=== PATIENT | male | born 1960 | race Caucasian/White ===

== ENCOUNTER → 2023-05-29 | Outpatient (CLI) | payer OTHER, SELFPAY ==
[2023-05-29 10:38] LABS: Hematocrit 39.5 % (40-54); Hemoglobin 13.3 g/dL (13.0-16.5); Mean Corp Hgb Conc 33.7 g/dL (32-36); Mean Platelet Vol. 11.5 fl (6.2-12.0); Platelet Count 172 K/mm3 (150-450); RBC Distribution Width CV 12.1 % (11.6-14.6); RBC Distribution Width SD 39.5 fl (35.1-43.9); Red Blood Count 4.44 M/mm3 (4.6-6.2)
[2023-05-29 10:50] LABS: ALB/GLOB Ratio 1.1 RATIO (0.9-2.4); AST(SGOT) 16 U/L (15-37); Alanine Aminotransfer ALT/SGPT 25 U/L (16-61); Albumin, Serum 4.1 g/dL (3.2-5.0); Alkaline Phosphatase 64 U/L (45-117); Anion Gap 5 (5-15); BUN 25 mg/dL (7-18); BUN/Creat Ratio 22.1 RATIO (10-20); Calcium,Total 9.2 mg/dL (8.5-10.1); Chloride 100 mmol/L (98-107); Cholesterol 144 mg/dL (200); Creatinine, Serum 1.13 mg/dL (0.70-1.30); EST Glomerular Filtration Rate 70 mL/min (>60); Est Glom Filt Rate - Afr Amer 84 mL/min (>60); Globulin 3.6 g/dL (2.2-4.2); Glucose 141 mg/dL (74-106); High Density Lipoprotein 36 mg/dL; Iron 93 ug/dL (65-175); Magnesium 2.2 mg/dL (1.6-2.6); Potassium 4.4 mmol/L (3.5-5.1); Protein, Total 7.7 g/dL (6.4-8.2); Sodium Level 135 mmol/L (136-145); Triglycerides 363 mg/dL; Uric Acid 7.3 mg/dL (3.5-7.2); Very Low Density Lipoprotein 73 mg/dL (5-40)
== END | disposition home or self-care (01) ==
LOC: MTLAB 07:05
PROVIDERS: PCP Student in an Organized Health Care Education/Training Program; Referring Provider Student in an Organized Health Care Education/Training Program; Visit Provider Student in an Organized Health Care Education/Training Program
DX: E11.65 Type 2 diabetes mellitus with hyperglycemia (principal); E11.39 Type 2 diabetes mellitus with other diabetic ophthalmic complication; I10 Essential (primary) hypertension; R25.2 Cramp and spasm; E78.5 Hyperlipidemia, unspecified; I25.10 Atherosclerotic heart disease of native coronary artery without angina pectoris
CPT/HCPCS: 36415; 80053; 80061; 83540; 83735; 84550; 85027

== ENCOUNTER → 2023-06-26 | Outpatient (CLI) | payer OTHER, SELFPAY ==
[2023-06-26 10:39] LABS: Anion Gap 6 (5-15); BUN 29 mg/dL (7-18); BUN/Creat Ratio 25.7 RATIO (10-20); Calcium,Total 9.4 mg/dL (8.5-10.1); Chloride 101 mmol/L (98-107); Creatinine, Serum 1.13 mg/dL (0.70-1.30); EST Glomerular Filtration Rate 70 mL/min (>60); Est Glom Filt Rate - Afr Amer 84 mL/min (>60); Glucose 153 mg/dL (74-106); Sodium Level 137 mmol/L (136-145)
== END | disposition home or self-care (01) ==
LOC: LAB 07:03 → MTLAB 07:04
PROVIDERS: PCP Student in an Organized Health Care Education/Training Program; Referring Provider Student in an Organized Health Care Education/Training Program; Visit Provider Student in an Organized Health Care Education/Training Program
DX: E87.0 Hyperosmolality and hypernatremia (principal)
CPT/HCPCS: 36415; 80048

== ENCOUNTER → 2023-08-17 | Outpatient (CLI) | payer OTHER, SELFPAY ==
--- NOTE | 2023-08-17 09:15 | ART_ITS ---
Reason For Study: claudication Procedure A bilateral lower extremity continuous wave Doppler with analog waveform analysis,segmental pressures,and ankle brachial indexes without exercise. Left Segmental Pressures Left brachial= 141mmHg. Left thigh = 209mmHg. Left calf = 170mmHg. Left posterior tibial artery = 138mmHg. Left dorsalis pedis artery = 96mmHg. Left digit = 77 mmHg. The left posterior tibial artery waveforms are triphasic. The left dorsalis pedis waveforms are biphasic. Right Segmental Pressures Right brachial= 144mmHg. Right thigh = 152mmHg. Right calf = 102mmHg. Right posterior tibial artery = 81mmHg. Right dorsalis pedis artery = 61mmHg. Right digit = 41 mmHg. The right dorsalis pedis waveforms are monophasic. The right posterior tibial artery waveforms are monophasic. Indices The right ankle brachial index by the dorsalis pedis is .42. The right ankle brachial index by the posterior tibial artery is .56. The right digital-brachial index is .28. The left ankle brachial index by the posterior tibial artery is .96. The left ankle brachial index by the dorsalis pedis is .67. The left digital-brachial index is .53. VL/Lower Ext Art Exam w/o Exercis Interpretation Summary Right AKANKSHA 0.56, moderate arterial insufficiency. Doppler/PVR waveforms and segm ental pressures reveal distal SFA/popliteal, infrapopliteal disease. Left AKANKSHA 0.96, mild arterial insufficiency. Doppler/PVR waveforms and segmental pressures reveal distal SFA/popliteal, infrapopliteal disease. Ordering Physician: Elvin Robertson Referring Physician: Elvin Robertson DO Performed By: Lui Mckeon RVT
--- NOTE | 2023-08-17 09:15 | CDU_ITS ---
Reason For Study: retinal ischemia Rt. Velocities/BP Lt. Velocities/BP Prox CCA 80.6/12.6 cm/sec. Prox CCA 81.6/13.3 cm/sec. Mid CCA 61.7/13.5 cm/sec. Mid CCA 64.5/12.3 cm/sec. Dist CCA 52.2/13.5 cm/sec. Dist CCA 50.5/9.3 cm/sec. Prox ICA 35.6/10.6 cm/sec. Prox ICA 31.3/10.6 cm/sec. Mid ICA 49.4/17.5 cm/sec. Mid ICA 42.5/14.9 cm/sec. Dist ICA 59.8/21.8 cm/sec. Dist ICA 57.2/19.2 cm/sec. Rt. ICA/CCA = 1.0. Lt. ICA/CCA = .9. Prox ECA 55.1/6.9 cm/sec. Prox ECA 55.5/8.3 cm/sec. Rt. Vert. 42.5/9.7 cm/sec. Lt. Vert. 44.2/14.9 cm/sec. Right Extracranial There is intimal thickening but no significant atherosclerotic plaque noted in the right common carotid artery. There is heterogeneous, irregular atherosclerotic plaque noted in the right internal carotid artery. There is intimal thickening but no significant atherosclerotic plaque noted in the right external carotid artery. Antegrade flow is noted in the right vertebral artery. Left Extracranial There is intimal thickening but no significant atherosclerotic plaque noted in the left common carotid artery. There is heterogeneous, irregular atherosclerotic plaque noted in the left internal carotid artery. There is heterogeneous, irregular atherosclerotic plaque noted in the left external carotid artery. Antegrade flow is noted in the left vertebral artery. Procedure Carotid Duplex 12542. This is a Carotid Duplex examination using B-mode, color flow and specral Doppler. The exam was diagnostic. Exam performed in department. VL/Carotid Duplex Ultrasound Interpretation Summary Mild (<50%) stenosis right extracranial internal carotid. Mild (<50%) stenosis left extracranial internal carotid. Patent and antegrade vertebrals bilaterally. Ordering Physician: Lucho Glass Referring Physician: Elvin Robertson Performed By: Lui Mckeon RVT
== END | disposition home or self-care (01) ==
LOC: CVS 09:11
PROVIDERS: PCP Student in an Organized Health Care Education/Training Program; Referring Provider Ophthalmology; Visit Provider Ophthalmology
DX: I73.9 Peripheral vascular disease, unspecified (principal)
CPT/HCPCS: 93880; 93923

== ENCOUNTER → 2024-02-01 | Outpatient (CLI) | payer OTHER, SELFPAY ==
--- NOTE | 2024-02-01 12:50 | ECHOCS_ITS ---
Reason For Study: CAD, HTN, HLD Procedure This was a 2D Doppler, Color Flow transthoracic echocardiogram. Contrast injection was performed. Exam performed in department. Left Ventricle Normal size and thickness. The left ventricular ejection fraction is 50 %. Diastolic function is indeterminate. Posterior and apical hypokinesis. Right Ventricle Normal right ventricle. Atria The left atrium is severely enlarged. The right atrium is mildly enlarged. Mitral Valve Trivial mitral valve insufficiency. Tricuspid Valve Trivial tricuspid valve insufficiency. Unable to estimate RV systolic pressure due to insufficient tricuspid regurgitant envelope. Aortic Valve Aortic sclerosis, no stenosis. Pulmonic Valve The pulmonic valve is not well visualized. Great Vessels Normal sized aortic root. Pericardium/Pleural Trivial pericardial effusion. Medication Diluted definity 3ml given slow IV push to enhance endocardial definition. MMode/2D Measurements & Calculations LVIDd: 5.0 cm IVSd: 1.1 cm Ao root diam: 3.2 cm LVIDs: 3.8 cm LVPWd: 1.1 cm LA dimension: 5.3 cm RVDd: 3.8 cm FS: 23.8 % LAV(MOD-bp): 51.5 ml LVAd ap4: 44.9 cm2 LVAd ap2: 34.4 cm2 LAV(MOD-bp) Indexed: 24.2 ml/m2 LVLd ap4: 9.2 cm LVLd ap2: 8.1 cm LAV(MOD-sp2): 41.0 ml EDV(MOD-sp4): 180.8 ml EDV(MOD-sp2): 117.7 ml LAV(MOD-sp4): 64.1 ml EDV(sp4-el): 185.3 ml EDV(sp2-el): 123.7 ml LVAs ap4: 30.9 cm2 LVAs ap2: 22.4 cm2 LVLs ap4: 8.7 cm LVLs ap2: 7.4 cm ESV(MOD-sp4): 92.2 ml ESV(MOD-sp2): 58.7 ml ESV(sp4-el): 92.7 ml ESV(sp2-el): 57.2 ml EF(MOD-sp4): 49.0 % EF(MOD-sp2): 50.1 % EF(sp4-el): 50.0 % SV(MOD-sp4): 88.6 ml SV(MOD-sp2): 59.0 ml SV(sp4-el): 92.6 ml LA A4 area: 20.6 cm2 LA dimension(2D): 5.2 cm RA A4 area: 17.2 cm2 TAPSE: 2.6 cm Time Measurements MV dec time: 0.24 sec Doppler Measurements & Calculations MV E max yonas: 78.3 cm/sec Lat Peak E' Yonas: 8.3 cm/sec Med Peak E' Yonas: 3.9 cm/sec MV A max yonas: 88.6 cm/sec E/E' lat: 9.4 E/E' med: 20.3 MV E/A: 0.88 Ao V2 max: 163.8 cm/sec LV V1 max: 111.7 cm/sec MV dec slope: 325.2 cm/sec2 Ao max P.7 mmHg LV V1 max P.0 mmHg Ao V2 mean: 112.1 cm/sec Ao mean P.7 mmHg Ao V2 VTI: 37.4 cm PA V2 max: 101.1 cm/sec ECHO/Echo Complete W/ Contrast Interpretation Summary The left ventricular ejection fraction is 50 %.. Posterior and apical hypokines is Diastolic function is indeterminate. The left atrium is severely enlarged. Aortic sclerosis, no stenosis. Ordering Physician: Kenyon Mccallum Referring Physician: Elvin Robertson Performed By: Nory Cotton RDCS, RVT
--- OUTSIDE RECORDS SUMMARY | 2024-02-01 17:44 | XMS RPT_ITS | CCD ---
Author Name Unknown Address [address] [place] [address] Organization [facility] Care Team Providers Care Interface Designer Name Role Phone SANDRA WEBB Unavailable SANDRA Moffett Unavailable RANJANA Patiño JR. Unavailable Unavailable DAJUAN, DR FELICIA Reeder Attending Unavaila ble DAJUAN, DR FELICIA Reeder Primary Care Unavaila ble DAJUAN, DR FELICIA Reeder Admitting Unavaila ble DAJUAN, DR FELICIA Reeder Attending Unavaila ble DAJUAN, DR FELICIA Reeder Primary Care Unavaila ble DAJUAN, DR FELICIA Reeder Admitting Unavaila ble EDWARDS WATER SANDER-CRYPTOLOGIC TECHNICIAN TECHNICAL, MICHELE Primary Care Physician [phone] ROMAR DO, DR IVY Primary Care Physician [phone] ROMAR DO, DR IVY Primary Care Unavailable ROMAR DO, DR IVY Attending Unavailable ROMAR DO, DR IVY Primary Care Unavailable ROMAR DO, DR IVY Attending Unavailable ROMAR DO, DR IVY Primary Care Unavailable ROMAR DO, DR IVY Attending Unavailable ROMAR DO, DR IVY Attending Unavailable ROMAR DO, DR IVY Primary Care Unavailable Medications Current Medications Medication Drug Class(es) Dates Sig (Normalized) Sig (Original) amLODIPine 5 mg oral tablet (4 sources) Dihydropyridine Calcium Channel Eileen Start: 05-29-2023 amLODIPine 5 mg oral tablet Dose : 5 mg = 1 tab(s), Oral, qDay, # 90 tab(s), 1 Refill(s), Pharmacy: [facility], 170, cm, 05/02/23 9:24:00 EDT, Height, kg, 05/02/23 9:24:00 EDT, Dosing Weight Start Date: 05/29/23 Status: Ordered Problems Active Problems Problem Classification Problem Date Documented Date Episodic/Chronic Anxiety disorders (4 sources) Anxiety 11-21-2019 Chronic Diabetes mellitus with complications (2 sources) Type 2 diabetes mellitus with other diabetic ophthalmic complication; Translations: [Type 2 diabetes mellitus with other diabetic ophthalmic complication] Onset: 01-17-2023 Chronic Diabetes mellitus without complication (11 sources) Diabetes mellitus; Translations: [Type 2 diabetes mellitus] 01-17-2023 Chronic Disorders of lipid metabolism (5 sources) Hyperlipidemia 11-21-2019 Chronic Disorders of teeth and jaw (4 sources) Dental caries 11-21-2019 Episodic Essential hypertension (8 sources) Essential hypertension; Translations: [Hypertensive disorder] 08-09-2020 Chronic Past or Other Problems Problem Classification Problem Date Documented Da te Episodic/Chronic Unclassified (1 source) I10,I50.22,E11.6 5,Z68.28 Onset: 05-24-2017 Results Test Name Value Interpretation Reference Range Facil ity Encounters Encounter Date Encounter Type Care Provider Facility Start: 11-21-2023 End: 11-26-[address] CATA SANTOS DO Facility:B Start: 11-21-2023 End: 11-25-[address] CATA SANTOS DO [facility] Start: 05-02-2023 End: 05-07-[address] CATA SANTOS DO Facility:B Start: 05-02-2023 End: 05-06-[address] CATA SANTOS DO [facility] Start: 01-17-2023 End: 01-22-[address] CATA SANTOS DO Facility:B Start: 01-17-2023 End: 01-21-[address] CATA SANTOS DO [facility] Start: 02-25-2021 End: 02-25-[address] FELICIA GRAFF [facility] Start: 01-28-2021 End: 01-28[facility] [facility] Start: 05-24-2017 End: 05-25-2017 Ambulatory SANDRA Stephen WEBB Facility:[facility] Procedures Date Procedure Procedure Detail Performing Clinician Start: 03-27-[address] CATA SANTOS DO Immunizations Immunization Date Immunization Notes Care Provider Ron rosenbaum 01-17-2023 tetanus toxoid, redu kyle diphtheria toxoid, and acellular pertussis vaccine, adsorbed; Translations: [Boostrix (Tdap)] DR CATA SANTOS DO [facility] Payers Date Payer Category Payer Unknown [id number] 1960 Unknown [id number] [id number] 1960 Unknown [id number] [id number] [id number] 1960 Unknown [id number] [id number] [id number] 1960 Unknown [id number] [id number] [id number] Social History Date Type Detail Facility Start: 01-21-2023 Tobacco smoking status Ex-smoker (fi nding) [facility] Clinical Note 11-23-2023 Note Date & Type Note Facility 11-23-2023 Note . MICRO - Microbiology PROCEDURE: Throat Culture [*1] SOURCE: Throat BODY SITE: COLLECTED DATE/TIME: 11/21/2023 13:53 EST RECEIVED DATE/TIME: 11/21/2023 19:54 EST START DATE/TIME: 11/21/2023 19:54 EST FREE TEXT SOURCE: FINAL REPORTS Final Report [] Verified Date/Time/Personnel: 11/23/2023 07:16 EST Normal throat mattie present Sensitivity Testing: Not Indicated PRELIMINARY REPORTS Preliminary Report [] Verified Date/Time/Personnel: 11/22/2023 12:46 EST Negative for upper respiratory pathogens at 24 hours. Performing Locations *1: This test was performed at: [address], [address] , [facility] ([place]) Clinical Note 05-04-2023 Note Date & Type Note Facility 05-04-2023 Note . MICRO - Microbiology PROCEDURE: Throat Culture [*1] SOURCE: Throat BODY SITE: COLLECTED DATE/TIME: 05/02/2023 10:30 EDT RECEIVED DATE/TIME: 05/02/2023 19:28 EDT START DATE/TIME: 05/02/2023 19:28 EDT FREE TEXT SOURCE: FINAL REPORTS Final Report [] Verified Date/Time/Personnel: 05/04/2023 07:34 EDT Normal throat mattie present Sensitivity Testing: Not Indicated PRELIMINARY REPORTS Preliminary Report [] Verified Date/Time/Personnel: 05/03/2023 09:59 EDT Negative for upper respiratory pathogens at 24 hours. Performing Locations *1: This test was performed at: [address], [facility]- , [facility] ([place]) SARS-CoV-2 (COVID-19) RNA GABBIE+probe Ql (Nph) 05-02-2023 Note Date & Type Note Facility 05-02-2023 SARS-CoV-2 (COVID -19) RNA GABBIE+probe Ql (Nph) Negative *NA* (05/02/23 10:30 AM) AO Auto Urine SS Evaluation + Plan note 09-25-2022 Laboratory Note Date & Type Note Facility 09-25-2022 Evaluation + Plan note Future Scheduled TestsBasic Metabolic Panel 09/25/22Iron Level 01/17/23Magnesium Level 01/17/23Complete Blood Count 01/17/23Lipid Profile 01/17/23Lipid Profile 09/25/22Complete Metabolic Panel 01/17/23 [facility] Evaluation + Plan note Laboratory Note Date & Type Note Facility Evaluation + Plan note Future Appointments Appointment Date:08/01/2023 09:30:00 AM Scheduled Provider:CATA SANTOS DO Location:[facility] Appointment Type: OV Future Scheduled TestsIron Level 05/02/23Magnesium Level 05/02/23Uric Acid 05/02/23Complete Blood Count 05/02/23Lipid Profile 05/02/23Complete Metabolic Panel 05/02/23 [facility] Evaluation + Plan note Laboratory Note Date & Type Note Facility Evaluation + Plan note Future Appointments Appointment Date:01/01/2024 09:30:00 AM Scheduled Provider:CATA SANTOS DO Location:[facility] Appointment Type: OV Future Scheduled TestsMagnesium Level 11/21/23Lipid Profile 11/21/23Complete Metabolic Panel 11/21/23 [facility] Hospital course Narrative Note Date & Type Note Facility Hospital course Narrative No data available for this section [facility] Hospital Discharge instructions Note Date & Type Note Facility Hospital Discharge instructions No data available for this section [facility] Progress note Note Date & Type Note Facility Progress note No data available for this section [facility] Summary Purpose Family History No Family History Records FoundNo Family History Records Found No data available for this section No Family History Records Found Advance Directives No Advanced Directives Records FoundNo Advanced Directives Records FoundNo Advanced Directives Records Found Additional Source Comments (unrecognized sect ion and content) No Status Records FoundNo Status Records FoundNo Status Records Found INFORMATION SOURCE (unrecogn ized section and content) DATE CREATED AUTHOR AUTHOR'S ORGANIZ ATION 03/11/2021 [facility] DATE CREATED AUTHOR AUTHOR'S ORGANIZ ATION 11/26/2023 [facility] ([place]) Care Team (unrecognized sect ion and content) Care Team Personnel Name: MICHELE EDWARDS Position: P4 Advanced Supervisor Correspondence Section Member Role: Primary Care Physician Address: Address: [address] [place] [address] [facility] [place] [place] [address] Care Team Related Persons Name: ROCIO CURRIE Address: Home [address] [place] [phone] Patient Care team informatio n (unrecognized section and content) Care Team Personnel Name: CATA SANTOS DO Position: P4 Physician - Primary Care Member Role: Primary Care Physician Address: Address: [address] [place] [address] Care Team Related Persons Name: ROCIO CURRIE Address: [address], [place] [id number] Care Team Personnel Name: CATA SANTOS DO Position: P4 Physician - Primary Care Member Role: Primary Care Physician Address: Address: [address] [place] [address] Care Team Related Persons Name: ROCIO CURRIE Address: Home [address], [place] [id number] Care Team Personnel Name: CATA SANTOS DO Position: P4 Physician - Primary Care Member Role: Primary Care Physician Address: Address: [address] [place] [address] Care Team Related Persons Name: ROCIO CURRIE Address: Home [address] [place] [phone] FOR RECORDS PERTAINING TO PATIENTS WHO ARE OR HAVE BEEN ENROLLED IN A CHEMICAL DEPENDENCY/SUBSTANCEABUSE PROGRAM, SOME INFORMATION MAY BE OMITTED. This clinical summary was aggregated from multiple sources. Caution should be exercised in using it in the provision of clinical care. This summary normalizes information from multiple sources, and as a consequence, information in this document may materially change the coding, format and clinical context of patient data. In addition, data may be omitted in some cases. CLINICAL DECISIONS SHOULD BE BASED ON THE PRIMARY CLINICAL RECORDS. [employer] provides no warranty or guarantee of the accuracy or completeness of information in this document.
== END | disposition home or self-care (01) ==
PROVIDERS: PCP Student in an Organized Health Care Education/Training Program; Referring Provider Internal Medicine Cardiovascular Disease; Visit Provider Internal Medicine Cardiovascular Disease
DX: I25.10 Atherosclerotic heart disease of native coronary artery without angina pectoris (principal); I10 Essential (primary) hypertension; E78.5 Hyperlipidemia, unspecified
CPT/HCPCS: 93306; Q9957; A4216; C8929

== ENCOUNTER → 2025-05-28 | Outpatient (CLI) | payer MEDICARE, SELFPAY ==
--- NOTE | 2025-05-28 08:45 | ART_ITS ---
Reason For Study Reason For Study: Atherosclerodsis Procedure A bilateral lower extremity continuous wave Doppler with analog waveform analysis and ankle brachial indexes. Unable to obtain doppler waveforms due to pencil probe being broken, used ultrasound machine to obtain blood pressures. Left Segmental Pressures Left brachial= 150mmHg. Left posterior tibial artery = 132mmHg. Left dorsalis pedis artery = 88mmHg. Left digit = 80 mmHg. Right Segmental Pressures Right brachial= 148mmHg. Right posterior tibial artery = 73mmHg. Right dorsalis pedis artery = 49mmHg. Right digit = 49 mmHg. Indices The right ankle brachial index by the dorsalis pedis is 0.33. The right ankle brachial index by the posterior tibial artery is 0.49. The right digital-brachial index is 0.33. The left ankle brachial index by the dorsalis pedis is 0.59. The left ankle brachial index by the posterior tibial artery is 0.88. The left digital-brachial index is 0.53. VL/Ankle Brachial Index Interpretation Summary The right resting ankle-brachial index appears moderately abnormal. The left re sting ankle-brachial index appears mildly abnormal. Ordering Physician: Chava Moreno Referring Physician: Elvin Robertson Performed By: Suzie Lo RVT
--- NOTE | 2025-05-28 08:45 | AAVD_ITS ---
Reason For Study Reason For Study: Atherosclerosis Aorta Measurements Aorta Doppler Measurements Proximal aorta measures2.09 x 2.09cm. in cross-sectional Peak systolic flow velocities within the proximal aorta axis. measure 83.2 cm/sec. Proximal aorta measures2.11cm. in longitudinal axis. Peak systolic flow velocities within the mid aorta measure Mid aorta measures1.87 x 1.82cm. in cross-sectional axis. 54.2 cm/sec. Mid aorta measures1.84cm. in longitudinal axis. Peak systolic flow velocities within the distal aorta Distal aorta measures1.68 x 1.66cm. in cross-sectional axis.measure 63.2 cm/sec. Distal aorta measures1.70cm. in longitudinal axis. Left Iliac Artery Left iliac artery measures 0.93 x 0.89 cm. in the cross-sectional axis. Left iliac artery measures 0.93 cm. in the longitudinal axis. Peak systolic velocity in the left iliac artery measures 63.2 cm/sec. Right Iliac Artery Right iliac artery measures 0.97 x 0.96 cm. in the cross-sectional axis. Right iliac artery measures 0.96 cm. in the longitudinal axis. Peak systolic velocity in the right iliac artery measures 232.5 cm/sec. Procedure Aorta IVC Iliac vasculature or bypass grafts [id number]. Exam performed in department. VL/Abd Aortic/IVC Duplex scan Interpretation Summary No aneurysm seen. Right common iliac stenosis. Ordering Physician: Chava Moreno Referring Physician: Elvin Robertson Performed By: Suzie Lo RVT
--- NOTE | 2025-05-28 08:45 | ADUL_ITS ---
Reason For Study Reason For Study: Atherosclerosis Right Velocities Ext. Iliac Artery, dist = 56.3 cm./sec. Acoustic shawdowing noted throughout the INSPECTOR AND TESTER and SFA prox. Common Femoral Artery, mid = 39.6 cm./sec. Supf Femoral Artery, prox = 14.9 cm./sec. Supf Femoral Artery, mid = 59.4 cm./sec. Supf Femoral Artery, dist. = 31.1 cm./sec. Profunda Femoral Artery = 31.1 cm./sec. Popliteal Artery, mid = 22.7 cm./sec. Post. Tibial Artery, prox = 45.3 cm./sec. Post. Tibial Artery, mid = 28.7 cm./sec. Post. Tibial Artery, dist = 34.8 cm./sec. Peroneal Artery, prox = 0 cm./sec. Peroneal Artery, mid = 0 cm./sec. Peroneal Artery,dist = 9.8 cm./sec. Ant. Tibial Artery, prox = 13.3 cm./sec. Ant. Tibial Artery, mid = 13 cm./sec. Ant. Tibial Artery, dist = 16.9 cm./sec. Procedure Exam performed in department. /US Art Duplex Unilat Lower Ext Interpretation Summary Right leg no stenosis seen but decrease flow noted and suspect proximal disease . Ordering Physician: Chava Moreno Referring Physician: Elvin Robertson Performed By: Suzie Lo RVT
--- OUTSIDE RECORDS SUMMARY | 2025-05-28 09:21 | XMS RPT_ITS | CCD ---
Author Organization [facility] Inform ion Partnership [facility] Care Team Providers Care Director [employer] Name Role Phone SANDRA WEBB Unavailable Unavailable SANDRA WEBB Unavailable Unavailable RANJANA CHRISTIAN JR. Unavailable Unavailable DAJUAN, DR FELICIA Reeder Attending Unavaila ble DAJUAN, DR FELICIA Reeder Primary Care Unavaila ble DAJUAN, DR FELICIA Reeder Admitting Unavaila ble DAJUAN, DR FELICIA Reeder Attending Unavaila ble DAJUAN, DR FELICIA Reeder Primary Care Unavaila ble DAJUAN, DR FELICIA Reeder Admitting Unavaila ble GRACE BARAJAS, MICHELE Primary Care Physician ROMAR DO, DR IVY Primary Care Physician [phone] Ailyn, Dr. Ivy Primary Care Provider [phone] Dr. Troy Ortiz Attending Provider ROMAR DO, DR IVY Primary Care Unavailable ROMAR DO, DR IVY Attending Unavailable ROMAR DO, DR IVY Primary Care Unavailable ROMAR DO, DR IVY Attending Unavailable ROMAR DO, DR IVY Primary Care Unavailable ROMAR DO, DR IVY Attending Unavailable ROMAR DO, DR IVY Attending Unavailable ROMAR DO, DR IVY Primary Care Unavailable Ailyn, Dr. Ivy Primary Care Provider [phone] Riaz Cohen Attending Provider [phone] AILYN DO, DR IVY Primary Care Unavailable ROMAR DO, DR IVY Attending Unavailable ROMAR DO, DR IVY Attending Unavailable ROMAR DO, DR IVY Primary Care Unavailable ROMAR DO, DR IVY Attending Unavailable ROMAR DO, DR IVY Primary Care Unavailable Jamaal Deleon Attending Unavailable Cata Robertson Referring Unavailable Cata Robertson Primary Care Unavailable Cata Robertson Primary Care Unavailable Moreno, Chava A Referring Unavailable Chava Moreno Attending Unavailable Medications Current Medications Medication Drug Class(es) Dates Sig (Normalized) Sig (Original) amLODIPine 5 mg oral tablet (7 sources) Dihydropyridine Calcium Channel Eileen Start: 11-20-2024 amLODIPine 5 mg oral tablet Dose : 5 mg = 1 tab(s), Oral, qDay, # 90 tab(s), 1 Refill(s), Pharmacy: [facility], 170, cm, 10/15/24 13:45:00 EST, Height, kg, 10/15/24 13:45:00 EST, Dosing Weight Start Date: 11/20/24 Status: Ordered Quantity: 90.0 Unit: tab(s) Repeat number: 2 Start: 08-15-2024 amLODIPine 5 m g oral tablet Dose : 5 mg = 1 tab(s), Oral, qDay, # 90 tab(s), 2 Refill(s), Pharmacy: [facility], 170.2, cm, 06/04/24 13:43:00 EDT, Height, kg, 06/04/24 13:43:00 EDT, Dosing Weight Start Date: 08/15/24 Status: Ordered Start: 05-29-2023 amLODIPine 5 m g oral tablet Dose : 5 mg = 1 tab(s), Oral, qDay, # 90 tab(s), 1 Refill(s), Pharmacy: [facility], 170, cm, 05/02/23 9:24:00 EDT, Height, kg, 05/02/23 9:24:00 EDT, Dosing Weight Start Date: 05/29/23 Status: Ordered Start: 08-18-2022 amLODIPine 5 m g oral tablet Dose : 5 mg = 1 tab(s), Oral, qDay, # 90 tab(s), 3 Refill(s), Pharmacy: [facility], 170, cm, 07/20/22 8:55:00 EDT, Height, kg, 07/20/22 8:55:00 EDT, Dosing Weight Start Date: 08/18/22 Status: Ordered aspirin 81 mg delayed release oral tablet (7 sources) Platelet Aggregation Inhibitor, Nonsteroidal Anti-inflammatory Drug Start: 07-01-2019 aspirin 81 mg ora l delayed release tablet Dose : 81 mg = 1 tab(s), Oral, Daily, 0 Refill(s) Start Date: 07/01/19 Status: Ordered Repeat number: 1 atorvastatin 80 mg oral tablet (7 sources) HMG-CoA Reductase Inhibitor Start: 08-19-2024 End: 03-07-2025 atorvastatin 80 mg oral tablet Dose : 80 mg = 1 tab(s), Oral, qHS, # 90 tab(s), 3 Refill(s), Pharmacy: [facility], 170.2, cm, 08/19/24 13:55:00 EDT, Height, kg, 08/19/24 13:55:00 EDT, Dosing Weight Start Date: 08/19/24 Stop Date: 03/07/25 Status: Ordered Quantity: 90.0 Unit: tab(s) Repeat number: 4 Start: 08-01-2023 atorvastatin 8 0 mg oral tablet Dose : 80 mg = 1 tab(s), Oral, qHS, # 90 tab(s), 1 Refill(s), Pharmacy: [facility], 170, cm, 08/01/23 9:25:00 EDT, Height, kg, 08/01/23 9:25:00 EDT, Dosing Weight Start Date: 08/01/23 Status: Ordered Start: 01-17-2023 Lipitor 40 mg oral tablet Dose : 40 mg = 1 tab(s), Oral, qDay, # 90 tab(s), 1 Refill(s), Pharmacy: [facility], 170, cm, 01/17/23 8:54:00 EST, Height, kg, 01/17/23 8:54:00 EST, Dosing Weight Start Date: 01/17/23 Status: Ordered benzonatate 100 mg oral capsule (5 sources) Non-narcotic Antitussive Start: 01-13-2025 End: 01-27-2025 Tessalon Perles 100 mg oral capsule Dose : 100 mg = 1 cap(s), Oral, TID, PRN as needed for cough, do not crush or chew, X 14 day(s), # 42 cap(s), 0 Refill(s), 01/27/25 9:28:00 AM EDT, Pharmacy: [facility], 169.5, cm, 01/13/25 8:48:00 EST, Height, kg, 01/13/25 8:48:00 EST, Dosing Weight Start Date: 01/13/25 Stop Date: 01/27/25 Status: Ordered Quantity: 42.0 Unit: cap(s) Repeat number: 1 Start: 11-21-2023 End: 12-05-2023 Tessalon Perles 100 mg oral capsule Dose : 100 mg = 1 cap(s), Oral, TID, PRN as needed for cough, do not crush or chew, X 14 day(s), # 42 cap(s), 0 Refill(s), 12/05/23 11:01:00 AM EST, Pharmacy: [facility], 170.3, cm, 11/21/23 9:57:00 EST, Height, kg, 11/21/23 9:57:00 EST, Dosing Weight Start Date: 11/21/23 Stop Date: 12/05/23 Status: Ordered Start: 05-02-2023 End: 05-09-2023 take 1-2 capsules by mouth three times daily as needed for cough Tessalon Perles 100 mg oral capsule 1-2 caps, Oral, TID, PRN as needed for cough, do not crush or chew, X 7 day(s), # 42 cap(s), 0 Refill(s), 05/09/23 10:19:00 EDT, Pharmacy: [facility], 170, cm, 05/02/23 9:24:00 EDT, Height Start Date: 05/02/23 Stop Date: 05/09/23 Status: Ordered carvedilol 25 mg oral tablet (7 sources) alpha-Adrenergic Eileen, beta-Adrenergic Eileen Start: 08-19-2024 carvedilol 25 mg oral tablet Dose : 25 mg = 1 tab(s), Oral, BID, TAKE 1 TABLET BY MOUTH TWICE DAILY, # 180 tab(s), 3 Refill(s), Pharmacy: [facility], 170.2, cm, 08/19/24 13:55:00 EDT, Height, kg, 08/19/24 13:55:00 EDT, Dosing Weight Start Date: 08/19/24 Status: Ordered Quantity: 180.0 Unit: tab(s) Repeat number: 4 Start: 11-21-2022 carvedilol 25 mg oral tablet Dose : 25 mg = 1 tab(s), Oral, BID, TAKE 1 TABLET BY MOUTH TWICE DAILY, # 180 tab(s), 3 Refill(s), Pharmacy: [facility], 170, cm, 09/25/22 9:05:00 EST, Height, kg, 09/25/22 9:05:00 EST, Dosing Weight Start Date: 11/21/22 Status: Ordered chlorthalidone 25 mg oral tablet (7 sources) Thiazide-like Diuretic Start: 12-01-2024 chlorthalidone 25 mg oral tablet Dose : 25 mg = 1 tab(s), Oral, qDay, TAKE 1 TABLET BY MOUTH ONCE DAILY, # 90 tab(s), 2 Refill(s), Pharmacy: [facility], 170, cm, 10/15/24 13:45:00 EST, Height, kg, 10/15/24 13:45:00 EST, Dosing Weight Start Date: 12/01/24 Status: Ordered Quantity: 90.0 Unit: tab(s) Repeat number: 3 Start: 09-12-2024 chlorthalidone 25 mg oral tablet Dose : 25 mg = 1 tab(s), Oral, qDay, TAKE 1 TABLET BY MOUTH ONCE DAILY, # 90 tab(s), 0 Refill(s), Pharmacy: [facility], 170.2, cm, 08/19/24 13:55:00 EDT, Height, kg, 08/19/24 13:55:00 EDT, Dosing Weight Start Date: 09/12/24 Status: Ordered Start: 12-15-2022 chlorthalidone 25 mg oral tablet Dose : 25 mg = 1 tab(s), Oral, qDay, TAKE 1 TABLET BY MOUTH ONCE DAILY, # 90 tab(s), 3 Refill(s), Pharmacy: [facility], 170, cm, 09/25/22 9:05:00 EST, Height, kg, 09/25/22 9:05:00 EST, Dosing Weight Start Date: 12/15/22 Status: Ordered 12 hr dextromethorphan hydrobromide 60 mg / guaiFENesin 1200 mg extended release oral tablet (2 sources) Uncompetitive H-ldwhii-N-aspartate Receptor Antagonist, Sigma-1 Agonist Start: 01-13-2025 End: 01-27-2025 dextromethorphan-guaifenesin 60 mg-1200 mg oral tablet, extended release Dose = 1 tab(s), Oral, BID, PRN Cough and congestion, do not crush or chew. with a full glass of water. Do not take any other over the counter mucinex, dextromethorphan, guaifenesin containing medications while on med., X 14 day(s), # 28 tab(s), 0 Refill(s), Pharmacy: [facility], 169.5, cm, 01/13/25 8:48:00 EST, Height, kg, 01/13/25 8:48:00 EST, Dosing Weight Start Date: 01/13/25 Stop Date: 01/27/25 Status: Ordered Quantity: 28.0 Unit: tab(s) Repeat number: 1 doxazosin 2 mg oral tablet (7 sources) alpha-Adrenergic Eileen Start: 09-08-2024 doxazosin 2 mg oral tablet Dose : 2 mg = 1 tab(s), Oral, qHS, # 90 tab(s), 3 Refill(s), Pharmacy: [facility], 170.2, cm, 08/19/24 13:55:00 EDT, Height, kg, 08/19/24 13:55:00 EDT, Dosing Weight Start Date: 09/08/24 Status: Ordered Quantity: 90.0 Unit: tab(s) Repeat number: 4 Start: 12-15-2022 doxazosin 2 mg oral tablet Dose : 2 mg = 1 tab(s), Oral, qHS, # 90 tab(s), 3 Refill(s), Pharmacy: [facility], 170, cm, 09/25/22 9:05:00 EST, Height, kg, 09/25/22 9:05:00 EST, Dosing Weight Start Date: 12/15/22 Status: Ordered empagliflozin 10 mg oral tablet (7 sources) Sodium-Glucose Cotransporter 2 Inhibitor Start: 10-14-2024 End: 05-02-2025 empagliflozin 10 mg oral tablet Dose : 10 mg = 1 tab(s), Oral, qAM, # 100 tab(s), 1 Refill(s), Pharmacy: [facility], 170.2, cm, 10/14/24 9:00:00 EST, Height, kg, 10/14/24 8:56:00 EST, Dosing Weight Start Date: 10/14/24 Stop Date: 05/02/25 Status: Ordered Quantity: 100.0 Unit: tab(s) Repeat number: 2 Start: 08-01-2023 empagliflozin 25 mg oral tablet Dose : 25 mg = 1 tab(s), Oral, qAM, # 90 tab(s), 1 Refill(s), Pharmacy: [facility], 170, cm, 08/01/23 9:25:00 EDT, Height, kg, 08/01/23 9:25:00 EDT, Dosing Weight Start Date: 08/01/23 Status: Ordered Start: 05-02-2023 End: 07-01-2023 empagliflozin 25 mg oral tab let Dose : 25 mg = 1 tab(s), Oral, qAM, # 60 tab(s), 0 Refill(s), Pharmacy: [facility], 170, cm, 05/02/23 9:24:00 EDT, Height Start Date: 05/02/23 Stop Date: 07/01/23 Status: Ordered Start: 01-17-2023 End: 04-17-2023 Jardiance 10 mg oral tablet Dose : 10 mg = 1 tab(s), Oral, qAM, # 90 tab(s), 0 Refill(s), Pharmacy: [facility], 170, cm, 01/17/23 8:54:00 EST, Height, kg, 01/17/23 8:54:00 EST, Dosing Weight Start Date: 01/17/23 Stop Date: 04/17/23 Status: Ordered eplerenone 25 mg oral tablet (5 sources) Aldosterone Antagonist Start: 09-02-2024 End: 12-01-2024 eplerenone 25 mg oral tablet Dose : 12.5 mg = 0.5 tab(s), Oral, qDay, X 90 day(s), # 45 tab(s), 0 Refill(s), 12/01/24 11:01:00 AM EST, Pharmacy: [facility], 170.2, cm, 08/19/24 13:55:00 EDT, Height, kg, 08/19/24 13:55:00 EDT, Dosing Weight Start Date: 09/02/24 Stop Date: 12/01/24 Status: Ordered Start: 11-21-2022 take 0.5 tablet by m outh once daily eplerenone 25 mg oral tablet See Instructions, TAKE 1/2 TABLET BY MOUTH DAILY, # 45 tab(s), 3 Refill(s), Pharmacy: [facility], 170, cm, 09/25/22 9:05:00 EST, Height, kg, 09/25/22 9:05:00 EST, Dosing Weight Start Date: 11/21/22 Status: Ordered 12 hr guaiFENesin 1200 mg extended release oral tablet (1 source) Start: 11-21-2023 End: 12-05-2023 take 1 tablet by mouth once daily guaiFENesin 1200 mg oral tablet, extended release Dose : 1,200 mg = 1 tab(s), Oral, q12h, PRN Cough and congestion, not to exceed 2.4 grams/day, with plenty of water. Do not take any other guaifenesin or mucinex containing over the counter medications while on this medication., X 14 day(s), # 28 tab(s), 0 Refill(s), 12/05/23 11:01:00 AM EST, Pharmacy: [facility], 170.3, cm, 11/21/23 9:57:00 EST, Height, kg, 11/21/23 9:57:00 EST, Dosing Weight Start Date: 11/21/23 Stop Date: 12/05/23 Status: Ordered lisinopril 20 mg oral tablet (7 sources) Angiotensin Converting Enzyme Inhibitor Start: 12-16-2024 lisinopril 20 mg oral tablet Dose : 20 mg = 1 tab(s), Oral, qDay, # 90 tab(s), 3 Refill(s), Pharmacy: [facility], 170, cm, 10/15/24 13:45:00 EST, Height, kg, 10/15/24 13:45:00 EST, Dosing Weight Start Date: 12/16/24 Status: Ordered Quantity: 90.0 Unit: tab(s) Repeat number: 4 Start: 09-02-2024 lisinopril 20 mg oral tablet Dose : 20 mg = 1 tab(s), Oral, qDay, # 90 tab(s), 0 Refill(s), Pharmacy: [facility], 170.2, cm, 08/19/24 13:55:00 EDT, Height, kg, 08/19/24 13:55:00 EDT, Dosing Weight Start Date: 09/02/24 Status: Ordered Start: 09-12-2023 lisinopril 20 mg oral tablet Dose : 20 mg = 1 tab(s), Oral, qDay, # 90 tab(s), 0 Refill(s), Pharmacy: [facility], 170, cm, 08/01/23 9:25:00 EDT, Height, kg, 08/01/23 9:25:00 EDT, Dosing Weight Start Date: 09/12/23 Status: Ordered Start: 09-25-2022 lisinopril 20 mg oral tablet Dose : 20 mg = 1 tab(s), Oral, qDay, # 90 tab(s), 3 Refill(s), Pharmacy: [facility], 170, cm, 09/25/22 9:05:00 EST, Height Start Date: 09/25/22 Status: Ordered metFORMIN hydrochloride 1000 mg oral tablet (7 sources) Biguanide Start: 10-14-2024 End: 05-02-2025 metFORMIN 1000 mg oral tablet (IR) Dose : 1,000 mg = 1 tab(s), Oral, BID, with meals, # 200 tab(s), 1 Refill(s), Pharmacy: [facility], 170.2, cm, 10/14/24 9:00:00 EST, Height, kg, 10/14/24 8:56:00 EST, Dosing Weight Start Date: 10/14/24 Stop Date: 05/02/25 Status: Ordered Quantity: 200.0 Unit: tab(s) Repeat number: 2 Start: 08-01-2023 metFORMIN 1000 mg oral tablet (IR) Dose : 1,000 mg = 1 tab(s), Oral, BID, with meals, # 180 tab(s), 1 Refill(s), Pharmacy: [facility], 170, cm, 08/01/23 9:25:00 EDT, Height, kg, 08/01/23 9:25:00 EDT, Dosing Weight Start Date: 08/01/23 Status: Ordered Start: 03-07-2023 metFORMIN 1000 mg oral tablet (IR) Dose : 1,000 mg = 1 tab(s), Oral, BID, with meals, # 180 tab(s), 1 Refill(s), Pharmacy: [facility], 170, cm, 03/07/23 10:01:00 EDT, Height, kg, 03/07/23 10:01:00 EDT, Dosing Weight Start Date: 03/07/23 Status: Ordered Start: 09-18-2022 metFORMIN 1000 mg oral tablet (IR) Dose : 1,000 mg = 1 tab(s), Oral, BID, # 180 tab(s), 1 Refill(s), Pharmacy: [facility], 170, cm, 07/20/22 8:55:00 EDT, Height, kg, 07/20/22 8:55:00 EDT, Dosing Weight Start Date: 09/18/22 Status: Ordered Multivitamin preparation (7 sources) Start: 03-24-2017 take 1 tablet by mouth once daily Multivitamin Dose = 1 tab(s), Oral, Daily, 0 Refill(s) Start Date: 03/24/17 Status: Ordered Repeat number: 1 Start: 03-24-2017 take 1 tablet by jenelle th once daily Multivitamin Dose = 1 tab(s), Oral, Daily, 0 Refill(s) Start Date: 03/24/17 Status: Ordered oseltamivir 75 mg oral capsule (1 source) Neuraminidase Inhibitor Start: 11-22-2023 End: 11-27-2023 oseltamivir 75 mg oral capsule Dose : 75 mg = 1 cap(s), Oral, BID, X 5 day(s), # 10 cap(s), 0 Refill(s), 11/27/23 5:19:00 PM EST, TREATMENT , Pharmacy: [facility], 170.3, cm, 11/21/23 9:57:00 EST, Height, kg, 11/21/23 9:57:00 EST, Dosing Weight Start Date: 11/22/23 Stop Date: 11/27/23 Status: Ordered Completed/Discontinued Medications Medication Drug Class(es) Dates Sig (Normalized) Sig (Original) hydrOXYzine hydrochloride 50 mg oral tablet (3 sources) Antihistamine Start: 10-14-2024 End: 11-13-2024 hydrOXYzine hydrochloride 50 mg oral tablet Dose : 50 mg = 1 tab(s), Oral, QID, PRN as needed for anxiety, Do not drive, operate heavy machinery, or drink alcohol while on this medication. Okay to try half a tab when first starting medication. Do not take any other anti-histamines while on this medication., # 30 tab(s), 0 Refill(s), Pharmacy: [facility], 170.2, cm, 10/14/24 9:00:00 EST, Height, kg, 10/14/24 8:56:00 EST, Dosing Weight Start Date: 10/14/24 Stop Date: 11/13/24 Status: Ordered Quantity: 30.0 Unit: tab(s) Repeat number: 1 Problems Active Problems Problem Classification Problem Date Documented Date Episodic/Chronic Anxiety disorders (7 sources) Anxiety 11-21-2019 Chronic Coronary atherosclerosis and other heart disease (3 sources) Coronary arteriosclerosis 08-19-2024 Chronic Diabetes mellitus with complications (6 sources) Type 2 diabetes mellitus with other diabetic ophthalmic complication; Translations: [Type 2 diabetes mellitus with other diabetic kidney complication] Onset: 01-17-2023 Chronic Diabetes mellitus without complication (20 sources) Diabetes mellitus; Translations: [Type 2 diabetes mellitus] 01-17-2023 Chronic Disorders of lipid metabolism (11 sources) Hyperlipidemia 11-21-2019 Chronic Disorders of teeth and jaw (7 sources) Dental caries 11-21-2019 Episodic Essential hypertension (17 sources) Essential hypertension; Translations: [Hypertensive disorder] Onset: 01-13-2025 08-09-2020 Chronic Comment on above: White coat component Fluid and electrolyte disorders (11 sources) Hyperkalemia; Translations: [Hypernatremia] 11-21-2019 Episodic Gout and other crystal arthropathies (7 sources) Gout 11-21-2019 Chronic Immunizations and screening for infectious disease (2 sources) Encounter for screening for other viral diseases; Translations: [Encounter for screening for other viral diseases] Onset: 10-21-2024 Episodic Influenza (2 sources) Influenza due to Influenza A virus 11-22-2023 Episodic Other and ill-defined heart disease (3 sources) Left atrial enlargement 06-04-2024 Chronic Other circulatory disease (7 sources) Disorder of coronary artery 08-09-2020 Chronic Comment on above: 70% stenosis in a sm all mid LAD and 100% RCA. Other connective tissue disease (7 sources) Cramp 01-17-2023 Episodic Other connective tissue disease (6 sources) H/O: gout 03-11-2023 Episodic Other connective tissue disease (6 sources) Pain in toe 03-07-2023 Episodic Other connective tissue disease (4 sources) Pain in calf 08-01-2023 Episodic Other lower respiratory disease (7 sources) Dyspnea 08-09-2020 Episodic Other lower respiratory disease (4 sources) H/O: pneumonia 11-21-2023 Episodic Other nutritional; endocrine; and metabolic disorders (4 sources) Body mass index 30+ - obesity 08-01-2023 Chronic Other nutritional; endocrine; and metabolic disorders (2 sources) Hyperuricemia without signs of inflammatory arthritis and tophaceous disease; Translations: [Hyperuricemia without signs of inflammatory arthritis and tophaceous disease] Onset: 10-21-2024 Episodic Other screening for suspected conditions (not mental disorders or infectious disease) (5 sources) Blood urate raised; Translations: [Encounter for screening for lipoid disorders] Onset: 10-21-2024 04-21-2024 Episodic Other skin disorders (6 sources) Foot callus 03-11-2023 Episodic Other upper respiratory infections (6 sources) Acute upper respiratory infection, unspecified; Translations: [Acute pharyngitis, unspecified] Onset: 05-02-2023 Episodic Peripheral and visceral atherosclerosis (8 sources) Intermittent claudication; Translations: [Peripheral vascular disease, unspecified] Onset: 10-21-2024 03-07-2023 Chronic Pleurisy; pneumothorax; pulmonary collapse (7 sources) Pleural effusion 08-09-2020 Episodic Pneumonia (except that caused by tuberculosis or sexually transmitted disease) (3 sources) Community acquired pneumonia 08-09-2020 Episodic Residual codes; unclassified (7 sources) Family history of cancer of colon 11-21-2019 Episodic Residual codes; unclassified (7 sources) Family history of ischemic heart disease 11-21-2019 Episodic Unclassified (1 source) Unknown / UNK(Unknown) Onset: 05-24-2017 Unclassified (4 sources) Peripheral arterial disease 08-22-2023 Unclassified (1 source) Cough, unspecified; Translations: [Cough, unspecified] Onset: 07-29-2024 Past or Other Problems Problem Classification Problem Date Documented Da te Episodic/Chronic Unclassified (1 source) I10,I50.22,E11.6 5,Z68.28 Onset: 05-24-2017 Results Test Name Value Interpretation Reference Range Facility LABORATORYOrdered By: Perla López on 01-13-2025 Albumin DL <= 20 mg/L (U) [Mass/Vol] 16.9 mg/L Invalid Interpretation Code AO ADM SS Albumin/Creatinine DL <= 20 mg/L (U) [Mass ratio] Unable to Calculate Invalid Interpretation Code 0 - 30 AO Chemistry S Comment on above: Result Comment: Unab le to calculate this test result accurately. Results used to calculate this test are outside the reportable range. Creatinine (U) [Mass/Vol] mg/dL Invalid Interpretation Code AO ADM SS MALBRon 01-13-2025 U Creatinine <13.0 Normal [facility] Comment on above: Performed By: #### M ALBR #### [address] [address] U Microalb 16.9 mg/L Normal [facility] Comment on above: Performed By: #### M ALBR #### [address] [address] U Ratio Alb/Cre Unable to Calculate Normal 0-30 [facility] Comment on above: Result Comment: Unab le to calculate this test result accurately. Results used to calculate this test are outside the reportable range. Performed By: #### M ALBR #### [address] [address] No Panel Informationon 01-13 Culture Throat Normal throat mattie present Sensitivity Testing: Not Indicated [facility] .Auto Diffon 10-21-2024 Basophil, Absolute 0.1 10 3/mcL Normal 0.0-0.2 [facility] Comment on above: Performed By: #### H CV1 #### [facility] [address] [place] [id number] #### MG, ADIFF, CBC, URIC, CMP, GFR, ANEU, LIPID #### [address] [address] Basophils/100 WBC (Bld) 0.7 % Normal 0.0-2.5 [facility] Comment on above: Performed By: #### H CV1 #### [place] [address] #### MG, ADIFF, CBC, URIC, CMP, GFR, ANEU, LIPID #### [address] [address] Eosinophil, Absolute 0.8 10 3/mcL High 0.0-0.7 [facility] Comment on above: Performed By: #### H CV1 #### [place] [address] #### MG, ADIFF, CBC, URIC, CMP, GFR, ANEU, LIPID #### [address] [address] Eosinophils/100 WBC (Bld) 8.9 % High 0.0-7.0 [facility] Comment on above: Performed By: #### H CV1 #### [place] [address] #### MG, ADIFF, CBC, URIC, CMP, GFR, ANEU, LIPID #### [address] [address] Lymphocyte, Absolute 1.8 10 3/mcL Normal 0.9-4.3 [facility] Comment on above: Performed By: #### H CV1 #### [place] [address] #### MG, ADIFF, CBC, URIC, CMP, GFR, ANEU, LIPID #### [address] [address] Lymphocytes/100 WBC (Bld) 20.4 % Normal 20.0-40.0 [facility] Comment on above: Performed By: #### H CV1 #### [place] [address] #### MG, ADIFF, CBC, URIC, CMP, GFR, ANEU, LIPID #### [address] [address] Monocyte, Absolute 0.6 10 3/mcL Normal 0.1-1.4 [facility] Comment on above: Performed By: #### H CV1 #### [address] [address] #### MG, ADIFF, CBC, URIC, CMP, GFR, ANEU, LIPID #### [address] [address] Monocytes/100 WBC (Bld) 7.1 % Normal 2.0-13.0 [facility] Comment on above: Performed By: #### H CV1 #### [address] [address] #### MG, ADIFF, CBC, URIC, CMP, GFR, ANEU, LIPID #### [address] [address] Neutrophils/100 WBC (Bld) 62.9 % Normal 50.0-75.0 [facility] Comment on above: Performed By: #### H CV1 #### [place] [address] #### MG, ADIFF, CBC, URIC, CMP, GFR, ANEU, LIPID #### [address] [address] .GFRon 10-21-2024 GFR 87 ml/min/1.73sqm Normal [facility] Comment on above: Result Comment: GFR Population mean for , Non- Americans Ages 20-29 = 116 mL/min/1.73 sq.m. Ages 30-39 = 107 mL/min/1.73 sq.m. Ages 40-49 = 99 mL/min/1.73 sq.m. Ages 50-59 = 93 mL/min/1.73 sq.m. Ages 60-69 = 85 mL/min/1.73 sq.m. Ages 70+ = 75 mL/min/1.73 sq.m. Chronic Kidney Disease: Less than 60 mL/min/1.73 square meters End Stage Renal Disease: Less than 15 mL/min/1.73 square meters Performed By: #### H CV1 #### [address] [address] #### MG, ADIFF, CBC, URIC, CMP, GFR, ANEU, LIPID #### [address] [address] GFR Non- 72 ml/min/1.73sqm Normal [facility] Comment on above: Result Comment: GFR Population mean for , Non- Americans Ages 20-29 = 116 mL/min/1.73 sq.m. Ages 30-39 = 107 mL/min/1.73 sq.m. Ages 40-49 = 99 mL/min/1.73 sq.m. Ages 50-59 = 93 mL/min/1.73 sq.m. Ages 60-69 = 85 mL/min/1.73 sq.m. Ages 70+ = 75 mL/min/1.73 sq.m. Chronic Kidney Disease: Less than 60 mL/min/1.73 square meters End Stage Renal Disease: Less than 15 mL/min/1.73 square meters Performed By: #### H CV1 #### [place] [address] #### MG, ADIFF, CBC, URIC, CMP, GFR, ANEU, LIPID #### [address] [id number] .NEUABSon 10-21-2024 Neutrophil, Absolute 5.6 10 3/mcL Normal 2.3-8.1 [facility] Comment on above: Performed By: #### H CV1 #### [address] [address] #### MG, ADIFF, CBC, URIC, CMP, GFR, ANEU, LIPID #### [address] [address] CBCon 10-21-2024 Erythrocyte distribution width (RBC) [Ratio] 13.4 % Normal 11.5-15.5 [facility] Comment on above: Performed By: #### H CV1 #### [place] [address] #### MG, ADIFF, CBC, URIC, CMP, GFR, ANEU, LIPID #### [place] [address] Hematocrit (Bld) [Volume fraction] 42.6 % Normal 40.0-52.0 [facility] Comment on above: Performed By: #### H CV1 #### [place] [address] #### MG, ADIFF, CBC, URIC, CMP, GFR, ANEU, LIPID #### [place] [address] Hgb 14.5 G/dL Normal 13.0-17.5 [facility] Comment on above: Performed By: #### H CV1 #### [place] [address] #### MG, ADIFF, CBC, URIC, CMP, GFR, ANEU, LIPID #### [place] [address] MCH (RBC) [Entitic mass] 31.1 pg Normal 27.0-33.0 [facility] Comment on above: Performed By: #### H CV1 #### [place] [address] #### MG, ADIFF, CBC, URIC, CMP, GFR, ANEU, LIPID #### [place] [address] MCHC 34.1 G/dL Normal 32.0-36.0 [facility] Comment on above: Performed By: #### H CV1 #### [place] [address] #### MG, ADIFF, CBC, URIC, CMP, GFR, ANEU, LIPID #### [place] [address] MCV (RBC) [Entitic vol] 91.2 fL Normal 81.0-100.0 [facility] Comment on above: Performed By: #### H CV1 #### [place] [address] #### MG, ADIFF, CBC, URIC, CMP, GFR, ANEU, LIPID #### [address] [address] Platelet 163 10 3/mcL Normal 150-450 [facility] Comment on above: Performed By: #### H CV1 #### [place] [address] #### MG, ADIFF, CBC, URIC, CMP, GFR, ANEU, LIPID #### [address] [address] Platelet mean volume (Bld) [Entitic vol] 8.8 fL Normal 6.4-10.5 [facility] Comment on above: Performed By: #### H CV1 #### [place] [address] #### MG, ADIFF, CBC, URIC, CMP, GFR, ANEU, LIPID #### [address] [address] RBC 4.67 10 6/mcL Normal 4.50-6.00 [facility] Comment on above: Performed By: #### H CV1 #### [place] [address] #### MG, ADIFF, CBC, URIC, CMP, GFR, ANEU, LIPID #### [address] [address] WBC 8.8 10 3/mcL Normal 4.5-10.8 [facility] Comment on above: Performed By: #### H CV1 #### [place] [address] #### MG, ADIFF, CBC, URIC, CMP, GFR, ANEU, LIPID #### [address] [address] CMPon 10-21-2024 Albumin Level 4.3 G/dL Normal 3.4-4.8 [facility] Comment on above: Performed By: #### H CV1 #### [place] [address] #### MG, ADIFF, CBC, URIC, CMP, GFR, ANEU, LIPID #### [address] [address] Albumin/Globulin [Mass ratio] 1.4 {ratio} Normal 1.1-2.5 [facility] Comment on above: Performed By: #### H CV1 #### [place] [address] #### MG, ADIFF, CBC, URIC, CMP, GFR, ANEU, LIPID #### [address] [address] ALP [Catalytic activity/Vol] 68 U/L Normal 40-135 [facility] Comment on above: Performed By: #### H CV1 #### [place] [address] #### MG, ADIFF, CBC, URIC, CMP, GFR, ANEU, LIPID #### [place] [id number] ALT [Catalytic activity/Vol] 36 U/L Normal 16-63 [facility] Comment on above: Performed By: #### H CV1 #### [place] [address] #### MG, ADIFF, CBC, URIC, CMP, GFR, ANEU, LIPID #### [place] [id number] AST [Catalytic activity/Vol] 18 U/L Normal 10-40 [facility] Comment on above: Performed By: #### H CV1 #### [place] [address] #### MG, ADIFF, CBC, URIC, CMP, GFR, ANEU, LIPID #### [place] [id number] Bili Total 0.6 mg/dL Normal 0.2-1.0 [facility] Comment on above: Result Comment: Use of this assay is not recommended for patients undergoing treatment with eltrombopag due to the potential for falsely elevated results. Performed By: #### H CV1 #### [facility] [address] [place], [place] [address] #### MG, ADIFF, CBC, URIC, CMP, GFR, ANEU, LIPID #### [address] [address] BUN/Creatinine Ratio 18 ratio Normal 7-27 [facility] Comment on above: Performed By: #### H CV1 #### [place] [address] #### MG, ADIFF, CBC, URIC, CMP, GFR, ANEU, LIPID #### [address] [address] Calcium [Mass/Vol] 9.3 mg/dL Normal 8.4-10.2 [facility] Comment on above: Performed By: #### H CV1 #### [place] [address] #### MG, ADIFF, CBC, URIC, CMP, GFR, ANEU, LIPID #### [address] [address] Chloride [Moles/Vol] 98 mmol/L Normal 98-107 [facility] Comment on above: Performed By: #### H CV1 #### [place] [address] #### MG, ADIFF, CBC, URIC, CMP, GFR, ANEU, LIPID #### [address] [address] CO2 [Moles/Vol] 31 mmol/L Normal 23-31 [facility] Comment on above: Performed By: #### H CV1 #### [place] [address] #### MG, ADIFF, CBC, URIC, CMP, GFR, ANEU, LIPID #### [address] [address] Creatinine [Mass/Vol] 1.04 mg/dL Normal 0.70-1.30 [facility] Comment on above: Result Comment: Test ing performed on Siemens Dimension EXL analyzer using a modified kinetic Brad technique. Performed By: #### H CV1 #### [place] [address] #### MG, ADIFF, CBC, URIC, CMP, GFR, ANEU, LIPID #### [address] [address] Electrolyte Balance 9.0 mEq/L Normal 4.0-15.[address] [facility] Comment on above: Performed By: #### H CV1 #### [place] [address] #### MG, ADIFF, CBC, URIC, CMP, GFR, ANEU, LIPID #### [address] [address] Globulin 3.0 G/dL Normal [facility] Comment on above: Performed By: #### H CV1 #### [place] [address] #### MG, ADIFF, CBC, URIC, CMP, GFR, ANEU, LIPID #### [address] [address] Glucose [Mass/Vol] 157 mg/dL High 80-115 [facility] Comment on above: Performed By: #### H CV1 #### [place] [address] #### MG, ADIFF, CBC, URIC, CMP, GFR, ANEU, LIPID #### [address] [address] Potassium [Moles/Vol] 4.2 mmol/L Normal 3.5-5.1 [facility] Comment on above: Performed By: #### H CV1 #### [place] [address] #### MG, ADIFF, CBC, URIC, CMP, GFR, ANEU, LIPID #### [address] [address] Sodium [Moles/Vol] 138 mmol/L Normal 136-145 [facility] Comment on above: Performed By: #### H CV1 #### [place] [address] #### MG, ADIFF, CBC, URIC, CMP, GFR, ANEU, LIPID #### [place] [id number] Total Protein 7.3 G/dL Normal 6.4-8.2 [facility] Comment on above: Performed By: #### H CV1 #### [place] [address] #### MG, ADIFF, CBC, URIC, CMP, GFR, ANEU, LIPID #### [place] [address] Urea nitrogen [Mass/Vol] 19 mg/dL High 7-18 [facility] Comment on above: Performed By: #### H CV1 #### [place] [address] #### MG, ADIFF, CBC, URIC, CMP, GFR, ANEU, LIPID #### [place] [id number] HCVon 10-21-2024 Hep C Ab Non-Reactive Normal Non-Reactive [facility] Comment on above: Performed By: #### H CV1 ####[place] [address]#### MG, ADIFF, CBC, URIC, CMP, GFR, ANEU, LIPID ####[place] [address] Hep C Ab Int Normal [facility] Comment on above: Result Comment: Nonr eactive: Samples with a value < 0.80 are considered nonreactive (negative) for antibodies to HCV. A negative test result does not exclude the possibility of exposure to or infection with HCV. HCV antibodies may be undetectable in some stages of the infection and in some clinical conditions. See Interp Performed By: #### H CV1 ####[place] [address]#### MG, ADIFF, CBC, URIC, CMP, GFR, ANEU, LIPID ####[place] [id number] [place] [address] LABORATORYOrdered By: SYSTEM SYSTEM on 10-21-2024 Albumin BCP dye [Mass/Vol] 4.3 G/dL Normal 3.4 - 4.8 G/dL AO ADM SS Albumin/Globulin [Mass ratio] 1.4 {ratio} Normal 1.1 - 2.5 ratio AO ADM SS ALP [Catalytic activity/Vol] 68 U/L Normal 40 - 135 U/L AO ADM SS ALT With P-5'-P [Catalytic activity/Vol] 36 U/L Normal 16 - 63 U/L AO ADM SS AST With P-5'-P [Catalytic activity/Vol] 18 U/L Normal 10 - 40 U/L AO ADM SS Basophils (Bld) [#/Vol] 0.1 103/mcL Normal 0.0 - 0.2 10^3/mcL AO Workflow SS Basophils/100 WBC (Bld) 0.7 % Normal 0.0 - 2.5 % AO Workflow SS Bilirubin [Mass/Vol] 0.6 mg/dL Normal 0.2 - 1 .0 mg/dL AO ADM SS Comment on above: Interpretive Data: U se of this assay is not recommended for patients undergoing treatment with eltrombopag due to the potential for falsely elevated results. Calcium [Mass/Vol] 9.3 mg/dL Normal 8.4 - 10. 2 mg/dL AO ADM SS Chloride [Moles/Vol] 98 mmol/L Normal 98 - 10 7 mmol/L AO ADM SS CO2 [Moles/Vol] 31 mmol/L Normal 23 - 31 mmol/L AO ADM SS Creatinine [Mass/Vol] 1.04 mg/dL Normal 0.70 - 1.30 mg/dL AO ADM SS Comment on above: Interpretive Data: T esting performed on Siemens Dimension EXL analyzer using a modified kinetic Brad technique. Electrolyte Balance 9.0 mEq/L Normal 4.0 - 15 .0 mEq/L AO ADM SS Eosinophil, Absolute 0.8 103/mcL High 0.0 - 0 .7 10^3/mcL AO Workflow SS Eosinophils/100 WBC (Bld) 8.9 % High 0.0 - 7.0 % AO Workflow SS Erythrocyte distribution width (RBC) [Ratio] 13.4 % Normal 11.5 - 15.5 % AO Workflow SS GFR/1.73 sq M.predicted among blacks MDRD (S/P/Bld) [Vol rate/Area] 87 ml/min/1.73sqm Invalid Interpretation Code AO Chemistry S Comment on above: Interpretive Data: GFR Population mean for , Non- Americans Ages 20-29 = 116 mL/min/1.73 sq.m. Ages 30-39 = 107 mL/min/1.73 sq.m. Ages 40-49 = 99 mL/min/1.73 sq.m. Ages 50-59 = 93 mL/min/1.73 sq.m. Ages 60-69 = 85 mL/min/1.73 sq.m. Ages 70+ = 75 mL/min/1.73 sq.m. Chronic Kidney Disease: Less than 60 mL/min/1.73 square meters End Stage Renal Disease: Less than 15 mL/min/1.73 square meters GFR/1.73 sq M.predicted among non-blacks MDRD (S/P/Bld) [Vol rate/Area] 72 ml/min/1.73sqm Invalid Interpretation Code AO Chemistry S Comment on above: Interpretive Data: GFR Population mean for , Non- Americans Ages 20-29 = 116 mL/min/1.73 sq.m. Ages 30-39 = 107 mL/min/1.73 sq.m. Ages 40-49 = 99 mL/min/1.73 sq.m. Ages 50-59 = 93 mL/min/1.73 sq.m. Ages 60-69 = 85 mL/min/1.73 sq.m. Ages 70+ = 75 mL/min/1.73 sq.m. Chronic Kidney Disease: Less than 60 mL/min/1.73 square meters End Stage Renal Disease: Less than 15 mL/min/1.73 square meters Globulin 3.0 G/dL Invalid Interpretation Code AO ADM SS Glucose [Mass/Vol] 157 mg/dL High 80 - 115 mg/dL AO ADM SS Hematocrit (Bld) [Volume fraction] 42.6 % Normal 40.0 - 52.0 % AO Workflow SS Hemoglobin (Bld) [Mass/Vol] 14.5 G/dL Normal 13.0 - 17.5 G/dL AO Workflow SS Lymphocytes (Bld) [#/Vol] 1.8 103/mcL Normal 0.9 - 4.3 10^3/mcL AO Workflow SS Lymphocytes/100 WBC (Bld) 20.4 % Normal 20.0 - 40.0 % AO Workflow SS Magnesium [Mass/Vol] 1.9 mg/dL Normal 1.8 - 2 .4 mg/dL AO ADM SS MCH (RBC) [Entitic mass] 31.1 pg Normal 27.0 - 33.0 pg AO Workflow SS MCHC 34.1 G/dL Normal 32.0 - 36.0 G/dL AO Workflow SS MCV (RBC) [Entitic vol] 91.2 fL Normal 81.0 - 100.0 fL AO Workflow SS Monocytes (Bld) [#/Vol] 0.6 103/mcL Normal 0.1 - 1.4 10^3/mcL AO Workflow SS Monocytes/100 WBC (Bld) 7.1 % Normal 2.0 - 13.0 % AO Workflow SS Neutrophils (Bld) [#/Vol] 5.6 103/mcL Normal 2.3 - 8.1 10^3/mcL AO Workflow SS Neutrophils/100 WBC (Bld) 62.9 % Normal 50.0 - 75.0 % AO Workflow SS Platelet mean volume (Bld) [Entitic vol] 8.8 fL Normal 6.4 - 10.5 fL AO Workflow SS Platelets (Bld) [#/Vol] 163 103/mcL Normal 150 - 450 10^3/mcL AO Workflow SS Potassium [Moles/Vol] 4.2 mmol/L Normal 3.5 - 5.1 mmol/L AO ADM SS Protein [Mass/Vol] 7.3 G/dL Normal 6.4 - 8.2 G/dL AO ADM SS RBC (Bld) [#/Vol] 4.67 106/mcL Normal 4.50 - 6.0 0 10^6/mcL AO Workflow SS Sodium [Moles/Vol] 138 mmol/L Normal 136 - 145 mmol/L AO ADM SS Urea nitrogen [Mass/Vol] 19 mg/dL High 7 - 18 mg/dL AO ADM SS Urea nitrogen/Creatinine [Mass ratio] 18 ratio Normal 7 - 27 ratio AO ADM SS Uric Acid Lvl 6.8 mg/dL Normal 3.5 - 7.2 mg/dL AO ADM SS WBC (Bld) [#/Vol] 8.8 103/mcL Normal 4.5 - 10.8 10^3/mcL AO Workflow SS LABORATORYOrdered By: Rosita Mcleod on 10-21-2024 Cholesterol [Mass/Vol] 149 mg/dL Normal 0 - 200 mg/dL AO ADM SS Comment on above: Interpretive Data: C holesterol Reference Interval: Less than 200 Desirable 200-239 Borderline high risk 240 and above High risk Cholesterol in HDL [Mass/Vol] 51 mg/dL Normal 40 - 60 mg/dL AO ADM SS Cholesterol in LDL [Mass/Vol] 67 mg/dL Normal 0 - 130 mg/dL AO ADM SS Triglyceride [Mass/Vol] 157 mg/dL High 0 - 150 mg/dL AO ADM SS Comment on above: Interpretive Data: T riglyceride Reference Interval: Less than 150 Normal 150-199 Borderline high risk 200-499 High risk 500 or higher Very high risk LABORATORYOrdered By: Magalis Hernandez on 10-21-2024 HCV Ab IA Ql Non-Reactive (10/21/24 11:22 AM) Normal Non-Reactive AH ADM SS HCV Ab IA Ql Nonreactive: Samples with a value < 0.80 are considered nonreactive (negative) for antibodies to HCV.A negative test result does not exclude the possibility of exposure to or infection with HCV. HCV antibodies may be undetectable in some stages of the infection and in some clinical conditions. Invalid Interpretation Code Chemistry S LIPIDon 10-21-2024 Cholesterol [Mass/Vol] 149 mg/dL Normal 0-200 [facility] Comment on above: Result Comment: Chol esterol Reference Interval: Less than 200 Desirable 200-239 Borderline high risk 240 and above High risk Performed By: #### H CV1 #### [place] [address] #### MG, ADIFF, CBC, URIC, CMP, GFR, ANEU, LIPID #### [address] [address] Cholesterol in HDL [Mass/Vol] 51 mg/dL Normal 40-60 [facility] Comment on above: Performed By: #### H CV1 #### [address] [address] #### MG, ADIFF, CBC, URIC, CMP, GFR, ANEU, LIPID #### [address] [address] Cholesterol in LDL [Mass/Vol] 67 mg/dL Normal 0-130 [facility] Comment on above: Performed By: #### H CV1 #### [place] [id number] #### MG, ADIFF, CBC, URIC, CMP, GFR, ANEU, LIPID #### [address] [address] Triglyceride [Mass/Vol] 157 mg/dL High 0-150 [facility] Comment on above: Result Comment: Trig lyceride Reference Interval: Less than 150 Normal 150-199 Borderline high risk 200-499 High risk 500 or higher Very high risk Performed By: #### H CV1 #### [place] [address] #### MG, ADIFF, CBC, URIC, CMP, GFR, ANEU, LIPID #### [address] [address] MGon 10-21-2024 Magnesium [Mass/Vol] 1.9 mg/dL Normal 1.8-2.4 [facility] Comment on above: Performed By: #### H CV1 #### [place] [address] #### MG, ADIFF, CBC, URIC, CMP, GFR, ANEU, LIPID #### [address] [address] URICon 10-21-2024 Uric Acid Lvl 6.8 mg/dL Normal 3.5-7.2 [facility] Comment on above: Performed By: #### H CV1 #### [place] [address] #### MG, ADIFF, CBC, URIC, CMP, GFR, ANEU, LIPID #### [address] [address] Urgent Care Visit Reporton 0 07-29-2024 Urgent Care Visit Report [facility] [address], [address] [place], [place] [address] OFFICE VISIT Date of Service: 07/29/24 MR#: [id number] Acct: [id number] Name: FELICIA CURRIE Rep #: [id number] : 1960 Provider: JOHANNA Spears Age/Sex: 63/M Location: [facility] [place] [place] Status: Signed Intake Vital Signs 07/29/24 06:34 Height 5 ft 6.5 in Weight: 203 lb 4 oz BMI 32.3 BP 120/78 Pulse 65 Temp 98.0 F Temp Source Temporal Pulse Oximetry (%) 97 Oxygen Delivery Method room air Intake Visit Reasons: SINUS/CHEST CONGESTION Accompanied by: Self Allergies No Known Allergies Allergy (Unverified 07/29/24 06:34) Medications ???Medication ???Instructions ???Recorded ???Confirmed ???Type amlodipine 5 mg tablet 5 mg PO QDAY 07/29/24 07/29/24 History amoxicillin 875 mg-potassium 1 tab PO BID #20 tabs 07/29/24 07/29/24 Rx clavulanate 125 mg tablet aspirin 81 mg tablet,delayed 81 mg PO QDAY 07/29/24 07/29/24 History release (Adult Low Dose Aspirin) atorvastatin 80 mg tablet 80 mg PO QDAY 07/29/24 07/29/24 History benzonatate 200 mg capsule 200 mg PO TID PRN cough #20 caps 07/29/24 07/29/24 Rx carvedilol 25 mg tablet 25 mg PO BID 07/29/24 07/29/24 History chlorthalidone 25 mg tablet 25 mg PO QDAY 07/29/24 07/29/24 History dexamethasone 0.7 mg intravitreal 1 implant intravitreal ONCE 07/29/24 07/29/24 History implant (Ozurdex) doxazosin 2 mg tablet 2 mg PO QDAY 07/29/24 07/29/24 History empagliflozin 25 mg tablet 25 mg PO QDAY 07/29/24 07/29/24 History (Jardiance) eplerenone 25 mg tablet 25 mg PO QDAY 07/29/24 07/29/24 History lisinopril 20 mg tablet 20 mg PO QDAY 07/29/24 07/29/24 History metformin 1,000 mg tablet 1,000 mg PO BID 07/29/24 07/29/24 History multivitamin 1 tab PO QAM 07/29/24 07/29/24 History PFSH Social History (Updated 07/29/24 @ 06:33 by Zuleyka Galaviz MA) household members: spouse Smoking Status: Former smoker alcohol intake: current alcohol intake frequency: a few times a week HPI HPI Details: FELICIA KUSH, is a 63 M who presents to the office today for initial evaluation in the [facility] for approximately 8-9 day history of persistent fever, chills, cough, BROWNING, sinus congestion. Patient notes no complaints of chest pain or shortness of breath or dyspnea on exertion. Requesting POC screening for influenza only; declining POC screening for COVID-19 as well as chest x-ray at this time. Several close contacts recently dx???d w/ similar URI complaints. No kiqy-qon-pezzddr taken to assist. Non-smoker. No other associated symptoms and no other alleviating/aggrava ting factors. PMH: History of pneumonia, several years ago would like to ensure he does not have the same today. ROS Const Constitutional: No other (As above) Exam Const General: cooperative, healthy appearing and no acute distress Orientation: alert, awake and oriented x3 HENMT Head: normal to inspection Ears: hearing grossly normal bilaterally, external ears normal, TM's normal bilaterally and EAC's normal Nose: external nose normal, nares normal, septum normal and clear nasal discharge Face and sinus: normal facial exam, sinuses nontender (though maxillary fullness to palpation bilaterally) and face symmetric Mouth: oral mucosae normal, lip normal, tongue normal and oropharynx normal Throat: posterior oropharynx normal, tonsils normal, uvula midline and scant amount purulent postnasal drainage Eyes General: appearance normal, both eyes and all related structures Neck Neck: normal visual inspection, full ROM, bilateral anterior cervical lymph node swelling/nontender to palpation, no meningeal signs and supple Neck mass: No Thyroid: thyroid normal Lymphatic: no lymphadenopathy noted Chest Chest palpation inspection: normal inspection of the chest Resp Effort Inspection: normal respiratory effort, able to speak in complete sentences and cough Quality of cough: wet (nonproductive in office today) Auscultation: Bilateral: Clear to Auscultation Cardio Palpation: normal PMI Rate: tachycardic Rhythm: regular rhythm Heart Sounds: S1 normal, S2 normal, no gallops, no murmurs and no rubs Pulses: radial pulses present Skin General: no rashes or lesions noted Neuro General: patient alert, patient awake and patient oriented x3 Cognition: normal cognition Speech: speech normal Psych Appearance: grossly normal Mental Status: mental status grossly normal Mood: congruent mood Affect: normal affect Speech and Movement: speech and movement normal Attitude: cooperative Diagnoses Contact with or exposure to other viral diseases Z20.828 Acute maxillary sinusitis, unspecified J01.00 Assessment and Plan Assessment and Plan (1) Contact with or exposure to other viral diseases: Status: Acute ( (more content not included)... Normal [facility] COVPCRon 11-21-2023 SARS-CoV-2 (COVID-19) RNA GABBIE+probe Ql (Unsp spec) Negative Normal Negative [facility] ([place]) Comment on above: Result Comment: Note s [id number] This test has been authorized by FDA under an EUA for use by authorized laboratories and has not been FDA cleared or approved. Results from the Xpert Xpress SARS-CoV-2/Flu/RSV or Xpert Xpress SARS-CoV-2 only test should be correlated with the clinical history, epidemiological data, and other data available to the clinician evaluating the patient. Performance of the Xpert Xpress SARS-CoV-2/Flu/RSV or Xpert Xpress SARS-CoV-2 only test has only been established in nasopharyngeal swab specimens. Erroneous test results might occur from improper specimen collection; failure to follow the recommended sample collection, handling, and storage procedures; technical error; or sample mix-up.False negative results may occur if virus is present at levels below the analytical limit of detection. Viral nucleic acid may persist in vivo, independent of virus viability. Detection of analyte target(s) does not imply that the corresponding virus(es) are infectious or are the causative agents for clinical symptoms.Recent patient exposure to FluMist or other live attenuated influenza vaccines may cause inaccurate positive results. Performed By: #### F LURSV #### [address] [address] #### COVPCR #### [address] [address] FLURSVon 11-21-2023 Flu A PCR (AO) Positive Abnormal Negative [facility] ([place]) Comment on above: Result Comment: Posi tive Results: Positive Flu A/B or RSV for by PCR. Positive test results do not rule out bacterial infection or co-infection with other pathogens. Test results should be interpreted in conjunction with other laboratory and clinical data. Negative Results: Negative for by PCR. Negative test results do not preclude influenza virus or RSV infection and should not be used as the sole basis for diagnosis, treatment, or other management decisions. There is a risk of false negative RSV results when at low concentration and in the presence of co-infection with high concentration of influenza A. Invalid Results: An Invalid result (INV) was obtained. The test was repeated with similar results. REPEAT COLLECTION AND TESTING IS RECOMMENDED. The [employer]a Flu A/B & RSV Assay is a real-time polymerase chain reaction (PCR) based qualitative in vitro diagnostic test for the direct detection and differentiation of influenza A virus, influenza B virus, and respiratory syncytial virus (RSV) nucleic acid in nasopharyngeal swab (ARTIST'S REPRESENTATIVE) specimens from patients with signs and symptoms of respiratory infection in conjunction with clinical and laboratory findings. The test is intended for use as an aid in the differential diagnosis of influenza A virus, influenza B virus, and RSV in humans and is not intended to detect influenza C. Performed By: #### F LURSV #### [facility] [address] [place] [id number] #### COVPCR #### [address] [address] Flu B PCR (AO) Negative Normal Negative [facility] ([place]) Comment on above: Result Comment: Posi tive Results: Positive Flu A/B or RSV for by PCR. Positive test results do not rule out bacterial infection or co-infection with other pathogens. Test results should be interpreted in conjunction with other laboratory and clinical data. Negative Results: Negative for by PCR. Negative test results do not preclude influenza virus or RSV infection and should not be used as the sole basis for diagnosis, treatment, or other management decisions. There is a risk of false negative RSV results when at low concentration and in the presence of co-infection with high concentration of influenza A. Invalid Results: An Invalid result (INV) was obtained. The test was repeated with similar results. REPEAT COLLECTION AND TESTING IS RECOMMENDED. The [employer] Flu A/B & RSV Assay is a real-time polymerase chain reaction (PCR) based qualitative in vitro diagnostic test for the direct detection and differentiation of influenza A virus, influenza B virus, and respiratory syncytial virus (RSV) nucleic acid in nasopharyngeal swab (ARTIST'S REPRESENTATIVE) specimens from patients with signs and symptoms of respiratory infection in conjunction with clinical and laboratory findings. The test is intended for use as an aid in the differential diagnosis of influenza A virus, influenza B virus, and RSV in humans and is not intended to detect influenza C. Performed By: #### F LURSV #### [address] [address] #### COVPCR #### [place] [address] RSV PCR (AO) Negative Normal Negative [facility] ([place]) Comment on above: Result Comment: Posi tive Results: Positive Flu A/B or RSV for by PCR. Positive test results do not rule out bacterial infection or co-infection with other pathogens. Test results should be interpreted in conjunction with other laboratory and clinical data. Negative Results: Negative for by PCR. Negative test results do not preclude influenza virus or RSV infection and should not be used as the sole basis for diagnosis, treatment, or other management decisions. There is a risk of false negative RSV results when at low concentration and in the presence of co-infection with high concentration of influenza A. Invalid Results: An Invalid result (INV) was obtained. The test was repeated with similar results. REPEAT COLLECTION AND TESTING IS RECOMMENDED. The [place] Flu A/B & RSV Assay is a real-time polymerase chain reaction (PCR) based qualitative in vitro diagnostic test for the direct detection and differentiation of influenza A virus, influenza B virus, and respiratory syncytial virus (RSV) nucleic acid in nasopharyngeal swab (ARTIST'S REPRESENTATIVE) specimens from patients with signs and symptoms of respiratory infection in conjunction with clinical and laboratory findings. The test is intended for use as an aid in the differential diagnosis of influenza A virus, influenza B virus, and RSV in humans and is not intended to detect influenza C. Performed By: #### F LURSV #### [place] [address] #### COVPCR #### [place] [address] LABORATORYOrdered By: Lizzie Schafer on 11-21-2023 FLUAV RNA GABBIE+probe Ql (Upper resp) Positive 3 *ABN* (11/21/23 1:53 PM) Invalid Interpretation Code AO Auto Urine SS Comment on above: Interpretive Data: P ositive Results: Positive Flu A/B or RSV for by PCR. Positive test results do not rule out bacterial infection or co-infection with other pathogens. Test results should be interpreted in conjunction with other laboratory and clinical data. Negative Results: Negative for by PCR. Negative test results do not preclude influenza virus or RSV infection and should not be used as the sole basis for diagnosis, treatment, or other management decisions. There is a risk of false negative RSV results when at low concentration and in the presence of co-infection with high concentration of influenza A. Invalid Results: An Invalid result (INV) was obtained. The test was repeated with similar results. REPEAT COLLECTION AND TESTING IS RECOMMENDED. The [place] Flu A/B & RSV Assay is a real-time polymerase chain reaction (PCR) based qualitative in vitro diagnostic test for the direct detection and differentiation of influenza A virus, influenza B virus, and respiratory syncytial virus (RSV) nucleic acid in nasopharyngeal swab (ARTIST'S REPRESENTATIVE) specimens from patients with signs and symptoms of respiratory infection in conjunction with clinical and laboratory findings. The test is intended for use as an aid in the differential diagnosis of influenza A virus, influenza B virus, and RSV in humans and is not intended to detect influenza C. FLUBV RNA GABBIE+probe Ql (Upper resp) Negative 4 (11/21/23 1:53 PM) Normal AO Auto Urine SS Comment on above: Interpretive Data: P ositive Results: Positive Flu A/B or RSV for by PCR. Positive test results do not rule out bacterial infection or co-infection with other pathogens. Test results should be interpreted in conjunction with other laboratory and clinical data. Negative Results: Negative for by PCR. Negative test results do not preclude influenza virus or RSV infection and should not be used as the sole basis for diagnosis, treatment, or other management decisions. There is a risk of false negative RSV results when at low concentration and in the presence of co-infection with high concentration of influenza A. Invalid Results: An Invalid result (INV) was obtained. The test was repeated with similar results. REPEAT COLLECTION AND TESTING IS RECOMMENDED. The [place]a Flu A/B & RSV Assay is a real-time polymerase chain reaction (PCR) based qualitative in vitro diagnostic test for the direct detection and differentiation of influenza A virus, influenza B virus, and respiratory syncytial virus (RSV) nucleic acid in nasopharyngeal swab (ARTIST'S REPRESENTATIVE) specimens from patients with signs and symptoms of respiratory infection in conjunction with clinical and laboratory findings. The test is intended for use as an aid in the differential diagnosis of influenza A virus, influenza B virus, and RSV in humans and is not intended to detect influenza C. RSV RNA GABBIE+probe Ql (Upper resp) Negative 5 (11/21/23 1:53 PM) Normal AO Auto Urine SS Comment on above: Interpretive Data: P ositive Results: Positive Flu A/B or RSV for by PCR. Positive test results do not rule out bacterial infection or co-infection with other pathogens. Test results should be interpreted in conjunction with other laboratory and clinical data. Negative Results: Negative for by PCR. Negative test results do not preclude influenza virus or RSV infection and should not be used as the sole basis for diagnosis, treatment, or other management decisions. There is a risk of false negative RSV results when at low concentration and in the presence of co-infection with high concentration of influenza A. Invalid Results: An Invalid result (INV) was obtained. The test was repeated with similar results. REPEAT COLLECTION AND TESTING IS RECOMMENDED. The [place] Flu A/B & RSV Assay is a real-time polymerase chain reaction (PCR) based qualitative in vitro diagnostic test for the direct detection and differentiation of influenza A virus, influenza B virus, and respiratory syncytial virus (RSV) nucleic acid in nasopharyngeal swab (ARTIST'S REPRESENTATIVE) specimens from patients with signs and symptoms of respiratory infection in conjunction with clinical and laboratory findings. The test is intended for use as an aid in the differential diagnosis of influenza A virus, influenza B virus, and RSV in humans and is not intended to detect influenza C. LABORATORYOrdered By: Fish Krueger on 11-21-2023 SARS-CoV-2 (COVID-19) RNA GABBIE+probe Ql (Resp) Negative 1, 2 (11/21/23 1:53 PM) Normal AH Auto Viro/Sero SS Comment on above: Result Comment: Note s [id number] Interpretive Data: T his test has been authorized by FDA under an EUA for use by authorized laboratories and has not been FDA cleared or approved. Results from the Xpert Xpress SARS-CoV-2/Flu/RSV or Xpert Xpress SARS-CoV-2 only test should be correlated with the clinical history, epidemiological data, and other data available to the clinician evaluating the patient. Performance of the Xpert Xpress SARS-CoV-2/Flu/RSV or Xpert Xpress SARS-CoV-2 only test has only been established in nasopharyngeal swab specimens. Erroneous test results might occur from improper specimen collection; failure to follow the recommended sample collection, handling, and storage procedures; technical error; or sample mix-up.False negative results may occur if virus is present at levels below the analytical limit of detection. Viral nucleic acid may persist in vivo, independent of virus viability. Detection of analyte target(s) does not imply that the corresponding virus(es) are infectious or are the causative agents for clinical symptoms.Recent patient exposure to FluMist or other live attenuated influenza vaccines may cause inaccurate positive results. No Panel Informationon 11-21 Culture Throat Normal throat mattie present Sensitivity Testing: Not Indicated [facility] Basophil percentageOrdered B y: Cata Robertson on 06-26-2023 Chloride [Moles/Vol] 101 mmol/L 98-107 [facility] Glucose [Mass/Vol] 153 mg/dL 74-106 [facility] Comment on above: Fasting Glucose resu lt greater than or equal to 126 mg/dL suggests DIABETES MELLITUS per A.D.A. criteria. Potassium [Moles/Vol] 4.0 mmol/L 3.5-5.1 [facility] Sodium [Moles/Vol] 137 mmol/L 136-145 [facility] Laboratory - Chemistry and C hemistry - challengeOrdered By: Cata Robertson on 06-26-2023 CO2 [Moles/Vol] 30.0 mmol/L 21.0-32.0 [facility] Urea nitrogen/Creatinine [Mass ratio] 25.7 mg/mg 10-20 [facility] No Panel InformationOrdered By: Cata Robertson on 06-26-2023 Estimated GFR (MDRD) Amer 84 mL/min >60 [facility] Comment on above: GFR Calc Estimated GFR (MDRD) Non-Af Amer 70 mL/min >60 [facility] Comment on above: Non- GFR Calc Serum or plasma calcium mark urement (mass/volume)Ordered By: Cata Robertson on 06-26-2023 Calcium [Mass/Vol] 9.4 mg/dL 8.5-10.1 [facility] Serum or plasma creatinine m easurement (mass/volume)Ordered By: Cata Robertson on 06-26-2023 Creatinine [Mass/Vol] 1.13 mg/dL 0.70-1.30 [facility] Comment on above: The validity of the calculated GFR & GFRAA in patients over 70 years has not been determined. Clinical correlation is essential. Serum or plasma urea nitroge n measurement (mass/volume)Ordered By: Cata Robertson on 06-26-2023 Urea nitrogen [Mass/Vol] 29 mg/dL 7-18 [facility] Thin prep Papanicolaou smear with manual screeningOrdered By: Cata Robertson on 06-26-2023 Thin prep Papanicolaou smear with manual screening 6 5-15 [facility] Basophil percentageOrdered B y: Cata Robertson on 05-29-2023 Bilirubin [Mass/Vol] 0.70 mg/dL 0.20-1.00 [facility] Comment on above: For patients on eltr ombopag therapy, use of Dimension [place] TBIL is not recommended. Chloride [Moles/Vol] 100 mmol/L 98-107 [facility] Cholesterol [Mass/Vol] 144 mg/dL <200 [facility] Comment on above: <200 mg/dL Desirable 200-240 mg/dL Borderline >240 mg/dL High Risk Glucose [Mass/Vol] 141 mg/dL 74-106 [facility] Comment on above: Fasting Glucose resu lt greater than or equal to 126 mg/dL suggests DIABETES MELLITUS per A.D.A. criteria. Potassium [Moles/Vol] 4.4 mmol/L 3.5-5.1 [facility] Protein [Mass/Vol] 7.7 g/dL 6.4-8.2 [facility] Sodium [Moles/Vol] 135 mmol/L 136-145 [facility] Triglyceride [Mass/Vol] 363 mg/dL <199 [facility] Comment on above: The drugs N-Acetylcy steine and Metamizole may falsely depress this assay.Serum Triglycerides Reference Interval Normal <150 mg/dL Borderline high 150 - 199 mg/dL High 200 - 499 mg/dL Very High > or = 500 mg/dL WBC (Bld) [#/Vol] 8.0 10*3/uL 4.4-11.0 [facility] Blood erythrocytes count (nu mber/volume)Ordered By: Cata Robertson on 05-29-2023 RBC (Bld) [#/Vol] 4.44 10*6/uL 4.6-6.2 [facility] Blood hemoglobin measurement (mass/volume)Ordered By: Cata Robertson on 05-29-2023 Hemoglobin (Bld) [Mass/Vol] 13.3 g/dL 13.0-16.5 [facility] Blood platelet mean volumeOr dered By: Cata Robertson on 05-29-2023 Platelet mean volume (Bld) [Entitic vol] 11.5 fL 6.2-12.0 [facility] Determination of erythrocyte mean corpuscular volume (MCV)Ordered By: Cata Robertson on 05-29-2023 MCV (RBC) [Entitic vol] 89.0 fL 80-94 [facility] Hematocrit Auto (Bld) [Volum e fraction]Ordered By: Cata Robertson on 05-29-2023 Hematocrit (Bld) [Volume fraction] 39.5 % 40-54 [facility] Iron measurement (mass/mass) Ordered By: Cata Robertson on 05-29-2023 Iron (Unsp spec) [Mass/Mass] 93 ug/dL 65-175 [facility] Laboratory - Chemistry and C hemistry - challengeOrdered By: Cata Robertson on 05-29-2023 ALP [Catalytic activity/Vol] 64 U/L 45-117 [facility] ALT [Catalytic activity/Vol] 25 U/L 16-61 [facility] CO2 [Moles/Vol] 30.0 mmol/L 21.0-32.0 [facility] Globulin (S) [Mass/Vol] 3.6 g/dL 2.2-4.2 [facility] Magnesium [Mass/Vol] 2.2 mg/dL 1.6-2.6 [facility] Urea nitrogen/Creatinine [Mass ratio] 22.1 mg/mg 10-20 [facility] Laboratory - Hematology and Cell countsOrdered By: Cata Robertson on 05-29-2023 Erythrocyte distribution width (RBC) [Entitic vol] 39.5 fL 35.1-43.9 [facility] Erythrocyte distribution width (RBC) [Ratio] 12.1 % 11.6-14.6 [facility] MCH (RBC) [Entitic mass] 30.0 pg 27.0-32.0 [facility] MCHC Auto (RBC) [Mass/Vol]Or dered By: Cata Robertson on 05-29-2023 MCHC (RBC) [Mass/Vol] 33.7 g/dL 32-36 [facility] No Panel InformationOrdered By: Cata Robertson on 05-29-2023 Estimated GFR (MDRD) Amer 84 mL/min >60 [facility] Comment on above: GFR Calc Estimated GFR (MDRD) Non-Af Amer 70 mL/min >60 [facility] Comment on above: Non- GFR Calc Platelets bldOrdered By: Tapan Robertson on 05-29-2023 Platelets (Bld) [#/Vol] 172 10*3/uL 150-450 [facility] Serum or plasma albumin mark urement (mass/volume)Ordered By: Cata Robertson on 05-29-2023 Albumin [Mass/Vol] 4.1 g/dL 3.2-5.0 [facility] Serum or plasma albumin/glob ulin mass ratioOrdered By: Cata Robertson on 05-29-2023 Albumin/Globulin [Mass ratio] 1.1 {ratio} 0.9-2.4 [facility] Serum or plasma calcium mark urement (mass/volume)Ordered By: Cata Robertson on 05-29-2023 Calcium [Mass/Vol] 9.2 mg/dL 8.5-10.1 [facility] Serum or plasma cholesterol in HDL measurement (mass/volume)Ordered By: Cata Robertson on 05-29-2023 Cholesterol in HDL [Mass/Vol] 36 mg/dL >40 [facility] Comment on above: The drugs N-Acetylcy steine and Metamizole may falsely depress this assay. Reference Range HDL <40 mg/dL Low HDL Cholesterol HDL >or= 60 mg/dL High HDL Cholesterol Serum or plasma cholesterol in VLDL measurement (mass/volume)Ordered By: Cata Robertson on 05-29-2023 Cholesterol in VLDL [Mass/Vol] 73 mg/dL 5-40 [facility] Serum or plasma creatinine m easurement (mass/volume)Ordered By: Cata Robertson on 05-29-2023 Creatinine [Mass/Vol] 1.13 mg/dL 0.70-1.30 [facility] Comment on above: The validity of the calculated GFR & GFRAA in patients over 70 years has not been determined. Clinical correlation is essential. Serum or plasma low density lipoprotein (LDL) cholesterol measurement (mass/volume)Ordered By: Cata Robertson on 05-29-2023 Cholesterol in LDL [Mass/Vol] 35 mg/dL 0-130 [facility] Serum or plasma urea nitroge n measurement (mass/volume)Ordered By: Cata Robertson on 05-29-2023 Urea nitrogen [Mass/Vol] 25 mg/dL 7-18 [facility] Serum or plasma uric acid me asurement (mass/volume)Ordered By: Cata Robertson on 05-29-2023 Urate [Mass/Vol] 7.3 mg/dL 3.5-7.2 [facility] Comment on above: The drugs N-Acetylcy steine and Metamizole may falsely depress this assay. Thin prep Papanicolaou smear with manual screeningOrdered By: Cata Robertson on 05-29-2023 Thin prep Papanicolaou smear with manual screening 16 U/L 15-37 [facility] Thin prep Papanicolaou smear with manual screening 5 5-15 [facility] [id number] 05-02-2023 SARS-CoV-2 (COVID-19) RNA GABBIE+probe Ql (Unsp spec) Negative Normal Negative [facility] ([place]) Comment on above: Performed By: #### C OVD19 #### [address] [address] SARS-CoV-2 (COVID-19) RNA GABBIE+probe Ql (Unsp spec) Normal [facility] ([place]) Comment on above: Result Comment: Nega tive results do not preclude SARS-CoV-2 infection and should not be used as the sole basis for patient management decisions. Negative results must be combined with clinical observations, patient history, and epidemiological information. There is a risk of false negative values resulting from improperly collected, transported, or handled specimens. There is a risk of false negative values due to the presence of sequence variants in the pathogen targets of the assay, procedural errors, amplification inhibitors in specimens, or inadequate numbers of organisms for amplification. MUSA SARS-CoV-2 Assay is a Real-Time reverse-transcriptase polymerase chain reaction (RT-PCR) based qualitative in vitro diagnostic test intended for the qualitative detection of nucleic acid from the SARS-CoV-2 in nasopharyngeal swab specimens collected from individuals suspected of COVID-19 by their healthcare provider. Testing is limited to laboratories certified under the Clinical Laboratory Improvement Amendments of 1988 (CLIA), 42 U.S.C. ?263a, to perform moderate and high complexity tests. COVID-19 Int Performed By: #### C OVD19 #### [facility] [address] [address] LABORATORYOrdered By: Rosita Mcleod on 05-02-2023 SARS-CoV-2 (COVID-19) RNA GABBIE+probe Ql (Resp) Negative results do not preclude SARS-CoV-2 infection and should not be used as the sole basis for patient management decisions. Negative results must be combined with clinical observations, patient history, and epidemiological information.There is a risk of false negative values resulting from improperly collected, transported, or handled specimens.There is a risk of false negative values due to the presence of sequence variants in the pathogen targets of the assay, procedural errors, amplification inhibitors in specimens, or inadequate numbers of organisms for amplification.MUSA SARS-CoV-2 Assay is a Real-Time reverse-transcripta se polymerase chain reaction (RT-PCR) based qualitative in vitro diagnostic test intended for the qualitative detection of nucleic acid from the SARS-CoV-2 in nasopharyngeal swab specimens collected from individuals suspected of COVID-19 by their healthcare provider. Testing is limited to laboratories certified under the Clinical Laboratory Improvement Amendments of 1988 (CLIA), 42 U.S.C. 263a, to perform moderate and high complexity tests. Invalid Interpretation Code AO Auto Urine SS No Panel Informationon 05-02 Culture Throat Normal throat mattie present Sensitivity Testing: Not Indicated [facility] LABORATORYOrdered By: Rosita Mcleod on 01-17-2023 Albumin DL <= 20 mg/L (U) [Mass/Vol] [address] mcg/dL Invalid Interpretation Code AO ADM SS Albumin/Creatinine DL <= 20 mg/L (U) [Mass ratio] 1233 mcg/mg Invalid Interpretation Code 0 - 30 mcg/mg AO ADM SS Creatinine (U) [Mass/Vol] 13.1 mg/dL Invalid Interpretation Code 39.0 - 259.0 mg/dL AO ADM SS MALBRon 01-17-2023 U Creatinine 13.1 mg/dL Low 39.0-259.0 [facility] ([place]) Comment on above: Performed By: #### M ALBR #### [address] [address] U Microalb [address] mcg/dL Normal [facility] ([place]) Comment on above: Performed By: #### M ALBR #### Preet [address] [address] U Ratio Alb/Cre 1233 mcg/mg High 0-30 [facility] ([place]) Comment on above: Performed By: #### M ALBR #### [address] [address] Basic Metabolic Panelon 07-0 Glucose mass conc 197 mg/dL High 70-105 [facility] Comment on above: Performed By: #### B MP ####[address] [address] BUN/Creatinine Ratio 19 mg/mg Normal 7-27 [facility] Comment on above: Performed By: #### B MP ####[address] [address] CO2 29 mmol/L Normal 22-29 [facility] Comment on above: Performed By: #### B MP ####[address] [address] Creatinine 0.8 mg/dL Normal 0.6-1.2 [facility] Comment on above: Performed By: #### B MP ####[address] [address] Electrolyte Balance 6.0 mEq/L Normal [facility] Comment on above: Performed By: #### B MP ####[address] [address] Calcium 9.3 mg/dL Normal 8.4-10.2 [facility] Comment on above: Performed By: #### B MP ####[address] [address] Urea nitrogen 15 mg/dL Normal 7-18 [facility] Comment on above: Performed By: #### B MP ####Preet [address] [address] Chloride 105 mmol/L Normal 98-107 [facility] Comment on above: Performed By: #### B MP ####Preet [address] [address] Potassium molar conc 4.5 mmol/L Normal 3.5-5.1 [facility] Comment on above: Performed By: #### B MP ####Preet [address] [address] Sodium 140 mmol/L Normal 136-146 [facility] Comment on above: Performed By: #### B MP ####Preet [address] [address] Glomerular Filtration Rate E stimateon 05-24-2017 eGFR (non-black) mL/min/{1.73_m2} Normal [facility] Comment on above: Result Comment: [place] mean GFR = 93 mL/min/1.73 sq.m. for ages 50-59 years. Chronic Kidney Disease: Less than 60 mL/min/1.73 square metersEnd Stage Renal Disease: Less than 15 mL/min/1.73 square meters Performed By: #### G FR ####[address] [address] Encounters Encounter Date Encounter Type Care Provider Facility Start: 05-28-2025 ambulatory Cata Robertson Facility:[facility] Start: 01-13-2025 End: 01-17-[address] CATA ROBERTSON DO [facility] Start: 01-13-2025 End: 01-17-[address] CATA ROBERTSON DO [facility] Start: 10-21-2024 End: 10-25-[address] CATA ROBERTSON DO Facility[facility] Start: 10-21-2024 End: 10-25-2024 Encounter for general adult medical examination without abnormal findings DR CATA ROBERTSON DO Facility:[facility] Start: 10-21-2024 End: 10-25-[address] CATA ROBERTSON DO [facility] Start: 07-29-2024 End: 07-29-2024 ambulatory Jamaal SPENCER Facility:[facility] Start: 02-01-2024 Non-patient / Non-visit Dr. Kristin Robertson Work Phone: [facility] Start: 02-01-2024 End: 02-01-[address] Cata Robertson Work Phone: [facility] Work Phone: Start: 02-01-2024 End: 02-01-[address] [facility] Start: 11-21-2023 End: 11-26-[address] CATA ROBERTSON DO Facility:[facility] Start: 11-21-2023 End: 11-25-[address] CATA ROBERTSON DO [facility] Start: 08-17-2023 Non-patient / Non-visit Dr. Kristin Robertson Work Phone: [facility] Start: 08-17-2023 End: 08-17-[address] Cata Robertson Work Phone: [facility] Work Phone: Start: 08-17-2023 End: 08-17-[address] [facility] Work [facility]: Start: 06-26-2023 End: 06-26-[address] Cata Robertson Work Phone: [facility] Work Phone: Start: 05-29-2023 End: 05-29-2023 ambulatory [facility] Work Phone: Start: 05-29-2023 End: 05-29-2023 Patient encounter procedure [facility] Work Phone: Start: 05-02-2023 End: 05-07-[address] CATA ROBERTSON DO Facility:[facility] Start: 05-02-2023 End: 05-06-[address] CATA ROBERTSON DO [facility] Start: 01-17-2023 End: 01-22-[address] CAAT ROBERTSON DO Facility:[facility] Start: 01-17-2023 End: 01-21-[address] CATA ROBERTSON DO [facility] Start: 02-25-2021 End: 02-25-[address] FELICIA GRAFF [facility] Start: 01-28-2021 End: 01-28-[address] FELICIA Reeder DAJUAN [facility] Start: 05-24-2017 End: 05-25-2017 Ambulatory SANDRA WEBB Facility:[facility] [place] Procedures Date Procedure Procedure Detail Performing Clinician Start: 03-27-[address] CATA ROBERTSON DO Comment on above: 70% stenosis in a sm all mid LAD and 100% RCA Immunizations Immunization Date Immunization Notes Care Provider Fa cili 10-14-2024 Pneumococcal conjuga te PCV20, polysaccharide [id number] conjugate, adjuvant, PF; Translations: [Prevnar 20] DR CATA ROBERTSON DO [facility] 10-14-2024 influenza, injectabl e, quadrivalent, contains preservative; Translations: [Fluad PF Prefilled Syringe ] DR CATA ROBERTSON DO [facility] 01-01-2024 influenza, injectabl e, quadrivalent, contains preservative; Translations: [Fluarix PF Quadrivalent ] DR CATA ROBERTSON DO [facility] 01-17-2023 tetanus toxoid, redu kyle diphtheria toxoid, and acellular pertussis vaccine, adsorbed; Translations: [Boostrix (Tdap)] DR CATA ROBERTSON DO [facility] Comment on above: Result Comment: Admi nistered TDAP 0.5mL IM in LD. pt tolerated well with no adverse effects noted. [facility] 09-14-2021 SARS-CoV-2 mRNA (tozinameran) vaccine DR CATA ROBERTSON DO [facility] Comment on above: Result Comment: 2021: [id number] 02-25-2021 SARS-CoV-2 (COVID-19 ) mRNA-[address] CATA ROBERTSON DO [facility] 01-28-2021 SARS-CoV-2 (COVID-19 ) mRNA-[address] CATA ROBERTSON DO [facility] Comment on above: Result Comment: 2020: [id number] 09-12-2017 influenza virus vacc ine, unspecified formulation DR CATA ROBERTSON DO [facility] 09-12-2017 pneumococcal polysaccharide vaccine, [address] CATA ROBERTSON DO [facility] Payers Date Payer Category Payer Unknown [id number] 2024 Unknown [id number] 2024 Self-pay 2023 Unknown [id number] 1959 Unknown [id number] 1959 Unknown [id number] [id number] 1959 Unknown [id number] 1959 Unknown [id number] [id number] 1959 Unknown [id number] [id number] 1959 Unknown [id number] [id number] 1959 Unknown [id number] [id number] Unknown [facility] [id number] Unknown [id number] Unknown [id number] Social History Date Type Detail Facility Start: 01-21-2023 End: 10-15-2024 Tobacco smoking status Ex-smoker (finding) [facility] Comment on above: quit in 1997 Start: 1960 Sex Assigned At Male A [facility] Sexual Orientation [facility] Start: 10-14-2019 Sex Male (finding) [facility] Clinical Notes 09-25-2022 to 01-15-2025 LaboratoryLaboratoryLaboratoryLaboratoryLaboratory Note Date & Type Note Facility 01-15-2025 Note . MICRO - Microbiology PROCEDURE: Throat Culture [*1] SOURCE: Throat BODY SITE: COLLECTED DATE/TIME: 01/13/2025 13:45 EST RECEIVED DATE/TIME: 01/13/2025 19:42 EST START DATE/TIME: 01/13/2025 19:42 EST FREE TEXT SOURCE: FINAL REPORTS Final Report [] Verified Date/Time/Personnel: 01/15/2025 07:17 EST Normal throat mattie present Sensitivity Testing: Not Indicated PRELIMINARY REPORTS Preliminary Report [] Verified Date/Time/Personnel: 01/14/2025 08:32 EST Negative for upper respiratory pathogens at 24 hours. Performing Locations *1: This test was performed at: [address], [facility] , [facility] 11-23-2023 Note . MICRO - Microbiology PROCEDURE: [...] Locations *1: This test was performed at: [address], [id number]- , [facility] ([place]) 05-04-2023 Note . MICRO - Microbiology PROCEDURE: [...] Locations *1: This test was performed at: [facility], [address] [place] [address], [id number] , [facility] ([place]) 05-02-2023 SARS-CoV-2 (COVID-19) RNA GABBIE+probe Ql (Nph) Negative *NA* (05/02/23 10:30 AM) AO Auto Urine SS 09-25-2022 Evaluation + Plan note Future Scheduled TestsBasic Metabolic Panel 09/25/22Iron Level 01/17/23Magnesium Level 01/17/23Complete Blood Count 01/17/23Lipid Profile 01/17/23Lipid Profile 09/25/22Complete Metabolic Panel 01/17/23 [facility] Evaluation + Plan note Future Appointments Appointment Date:08/01/2023 09:30:00 AM Scheduled Provider:CATA ROBERTSON DO Location:[facility] Appointment Type:PC OV Future Scheduled TestsIron Level 05/02/23Magnesium Level 05/02/23Uric Acid 05/02/23Complete Blood Count 05/02/23Lipid Profile 05/02/23Complete Metabolic Panel 05/02/23 [facility] Evaluation + Plan note Future Appointments Appointment Date:01/01/2024 09:30:00 AM Scheduled Provider:CATA ROBERTSON DO Location:[facility] Appointment Type:PC OV Future Scheduled TestsMagnesium Level 11/21/23Lipid Profile 11/21/23Complete Metabolic Panel 11/21/23 [facility] Evaluation + Plan note Future Appointments Appointment Date:01/13/2025 09:00:00 AM Scheduled Provider:CATA ROBERTSON DO Location:[facility] Appointment Type:PC OV Future Scheduled TestsLipid Profile 08/19/24 [facility] Evaluation + Plan note Future Appointments Appointment Date:04/16/2025 09:00:00 AM Scheduled Provider:CATA ROBERTSON DO Location:[facility] Appointment Type:PC Wellness Medicare Future Scheduled TestsLipid Profile 08/19/24 [facility] Evaluation note No assessment inform ation available [facility] Work Phone: Hospital course Narrative No data available for this section [facility] Hospital Discharge instructions No data available for this section [facility] Progress note No data available for this section [facility] Summary Purpose Family History No Family History Records FoundNo Family History Records Found No data available for this section No Family History Records Found No data available for this section No data available for this section No data available for this section No Family History Records FoundNo Family History Records Found Advance Directives No Advanced Directives Records FoundNo Advanced Directives Records FoundNo Advanced Directives Records FoundNo Advanced Directives Records FoundNo Advanced Directives Records Found Chief Complaint and Reason for Visit Chief Complaint EORDER RETINAL ISCHEMIA Chief Complaint CAD, HTN, HYPERLIPID EMIA Additional Source Comments (unrecognized sect ion and content) No Status Records FoundNo Status Records FoundNo Status Records FoundNo Status Records FoundNo Status Records Found INFORMATION SOURCE (unrecogn ized section and content) DATE CREATED AUTHOR 05/15/2018 [facility] DATE CREATED AUTHOR AUTHOR'S ORGANIZ ATION 03/11/2021 [facility] DATE CREATED AUTHOR AUTHOR'S ORGANIZ ATION 11/26/2023 [facility] ([place]) DATE CREATED AUTHOR AUTHOR'S ORGANIZ ATION 01/19/2025 [facility] DATE CREATED AUTHOR AUTHOR'S ORGANIZ ATION 05/19/2025 [facility] Care Team (unrecognized sect ion and content) Care Team Personnel Name: MICHELE EDWARDS Position: [employer] Member Role: Primary Care Physician Address: Address: [address] [facility] [place], [place] [address] Care Team Related Persons Name: ROCIO CURRIE Address: Home [address] [place] [address], [phone] Patient Care team informatio n (unrecognized section and content) Team Status: Active Member Role Status Dates Dr. Clifford White MD Family Provider Active Dr. Cata Robertson , DO Primary Care Provider Active Team Status: Inactive Member Role Status Dates Dr. Cata Robertson , DO Primary Care Provide r, Attending Provider, Referring Provider Active Team Status: Active Member Role Status Dates Dr. Cata Robertson DO Primary Care Provider Active Dr. Troy Ortiz MD Attending Provider Active Team Status: Inactive Member Role Status Dates Dr. Cata Robertson DO Primary Care Provider Active Dr. Lucho Glass MD Attending Provider, Referring P melissa Active Team Status: Active Member Role Status Dates Dr. Cata Robertson DO Primary Care Provider Active Dr. Riaz Cohen MD Attending Provider Active Team Status: Inactive Member Role Status Dates Dr. Cata Robertson , DO Primary Care Provider Active SANDRA WEBB MD Attending Provider, Referring Provid er Active Goals (unrecognized section and content) Goals may be documented in a n alternate section FOR RECORDS PERTAINING TO PATIENTS WHO ARE [...] BE BASED ON THE PRIMARY CLINICAL RECORDS. [facility] [employer] provides no warranty or guarantee of the accuracy or completeness of information in this document.
== END | disposition home or self-care (01) ==
LOC: CVS 08:43
PROVIDERS: PCP Student in an Organized Health Care Education/Training Program; Referring Provider Surgery Vascular Surgery; Visit Provider Surgery Vascular Surgery
DX: I70.211 Atherosclerosis of native arteries of extremities with intermittent claudication, right leg (principal); E11.9 Type 2 diabetes mellitus without complications; I10 Essential (primary) hypertension
CPT/HCPCS: 93922; 93926; 93978